=== PATIENT | female | born 1975 | race Two or more races ===

== ENCOUNTER 2020-12-13 07:50 | Emergency (ER) | payer OTHER, SELFPAY ==
--- NOTE | ~2020-12-13 | CT_ITS ---
EXAMINATION: CT HEAD WITHOUT CONTRAST CLINICAL INFORMATION: Right-sided headache COMPARISON: None TECHNIQUE: Contiguous axial imaging was performed from the skull base to vertex without intravenous administration of contrast. This CT examination was performed using dose optimization techniques as appropriate, variously including the following: *Automated exposure control *Adjustment of mA and/or kV according to patient size (this includes techniques or standardized protocols for targeted exams where dose is matched to indication/reason for exam; i.e. extremities or head) *Use of iterative reconstruction technique DLP: 700 mGy-cm FINDINGS: There is no evidence of acute intracranial hemorrhage or territorial infarction. No abnormal mass effect or midline shift is seen. Parker to white matter differentiation is well preserved. No extra-axial fluid collections are identified. The ventricles are normal in size. There is no abnormal attenuation within the brain parenchyma. The osseous structures and soft tissues are normal. The mastoid air cells and visualized portions of the paranasal sinuses are well aerated. CT/CT head/brain wo con IMPRESSION: No acute intracranial process seen.
[2020-12-13 08:31] VITALS: BP 164/75; PULSE 76; RESP 18; TEMP 36.4; O2SAT 100; BMI 32.8
--- NOTE | 2020-12-13 09:07 | ED.EYEPROB ---
HPI - Eye Problem General Chief complaint: Eye Problems Stated complaint: head and eye pain Time Seen by Provider: 12/13/20 09:06 Source: patient Mode of arrival: ambulatory Limitations: no limitations History of Present Illness HPI Narrative: 45 yo female hx of HTN, migraines in the past, comes in with intermittent stabbing pain behind R eye - no vision changes, no fevers, no trauma. chief complaint: other (headache) Onset (ago): day(s) (3) Duration: intermittent Location: right eye Place: home Mechanism: none Severity: moderate If Pain, Quality: stabbing Context: other (hx of headaches in the past but not for years) Associated symptoms: headache Treatments Prior to Arrival: other (took some tylenol no relief) Related Data Home Medications Medication Instructions Recorded Confirmed clonazepam 0.5 mg tablet 0.5 mg PO BID PRN 03/25/20 04/08/20 sertraline 100 mg tablet 0 mg PO 03/25/20 04/08/20 zonisamide 100 mg capsule 200 mg PO BID 03/25/20 04/08/20 Previous Rx's Medication Instructions Recorded hydrochlorothiazide 25 mg tablet 25 mg PO DAILY 90 Days #90 tab 03/25/20 ferrous sulfate 325 mg (65 mg 325 mg PO BID #180 tab 05/12/20 iron) tablet nmwsxcdgwy-ibiilxyhoziud-qbjgsksp 1 tab PO Q6H PRN #20 tab 12/13/20 50 mg-325 mg-40 mg tablet cyclobenzaprine 10 mg tablet 10 mg PO TID PRN #14 tab 12/13/20 Allergies Allergy/AdvReac Type Severity Reaction Status Date / Time Penicillins Allergy Intermediate RASH Verified 04/08/20 17:50 penicillin V Allergy Unknown hives Verified 04/08/20 17:50 Review of Systems Review of Systems: Constitutional : No Fever, No Chills, No Fatigue ENT/Mouth : No sore throat, No Rhinorrhea Eyes: pos Eye Pain, No Swelling, No Redness Cardiovascular : No Chest Pain, No SOB, No Dyspnea on Exertion Respiratory : No Cough, No Sputum Gastrointestinal : No Nausea, No Vomiting, No Diarrhea, No abdominal Pain Genitourinary : No Dysuria, No Urinary Frequency, No Hematuria, Musculoskeletal : No joint pain, No Myalgias, No Joint Swelling Skin : No Skin Lesions, No rash Neuro : No Weakness, No Numbness, No Dizziness, positive Headache Psych : No Anxiety/Panic, No Depression Heme/Lymph: No Bruising, No Bleeding,No Lymphadenopathy Endocrine : No Polyuria, No Polydipsia All other systems reviewed and are negative [facility] Past Medical History Attestation statement: The following information was validated with the patient. Medical History Depression with anxiety Essential hypertension Iron deficiency anemia Surgical History History of carpal tunnel release History of tubal ligation Family History Family History (Updated 03/16/20 @ 10:40 by Evelyn Vargas [facility]) Father Hypertension Mother Hypertension Maternal Grandmother Diabetes Paternal Grandfather Cancer Social History Social History (Updated 12/13/20 @ 09:25 by Samina Mccullough DO) Patient Tobacco Use Status: Never used Tobacco Use of substances other than those prescribed or required for medical reasons: No Advance Directives: No Advance Directives Information Provided: No Physical Exam Vital Signs: Vital Signs: Last Vital Signs Temp 97.6 F 12/13/20 08:31 Pulse 76 12/13/20 08:31 Resp 18 12/13/20 08:31 BP 164/75 H 12/13/20 08:31 Pulse Ox 100 12/13/20 08:31 Body Mass Index 32.8 Appearance: Alert. Oriented X3. No acute distress. Eyes: Pupils equal, round and reactive to light. ENT: Pharynx normal. no temporal artery ttp Neck: Normal inspection. Neck supple. no meningeal signs CVS: Normal heart rate and rhythm. Pulses normal. Respiratory: No respiratory distress. Breath sounds normal. Abdomen: Soft and nontender. Skin: Skin warm and dry. Normal skin color. Normal skin turgor. Extremities: No lower extremity edema. Neuro: Oriented X 3. No motor deficit. No sensory deficit. Course Course Course Narrative: feels much better, pain resolved, CT head negative MDM - Eye Problem MDM Narrative Medical decision making narrative: 45 yo female with hx of HTN, headaches here with R sided stabbing headache no vision changes, normal pupil, eye appears normal, no tender temporal artery - at this time CT head for mass, PO pain medications, could be headache vs trigeminal neuralgia type pain, doubt GCA, given normal eye exam doubt glaucoma, dispo per results and findings. Discharge Plan Discharge Clinical Impression: Acute headache Qualifiers: Headache type: unspecified Intractability: not intractable Qualified Code(s): R51.9 - Headache, unspecified Patient Disposition: Home, Self-Care Instructions: Acute Headache (ED) Additional Instructions: return to ED for any worsening symptoms or concerns Prescriptions: New cyclobenzaprine 10 mg tablet 10 mg PO TID PRN (Reason: muscle spasm) Qty: 14 RF: 0 fwdqcarkjb-vskpqpdpmrvre-hpta 50-325-40 mg tablet 1 tab PO Q6H PRN (Reason: pain) Qty: 20 RF: 0 No Action ferrous sulfate 325 mg (65 mg iron) tablet 325 mg PO BID Qty: 180 RF: 5 sertraline 100 mg tablet 0 mg PO RF: 0 clonazepam 0.5 mg tablet 0.5 mg PO BID PRNRF: 0 zonisamide 100 mg capsule 200 mg PO BID RF: 0 hydrochlorothiazide 25 mg tablet 25 mg PO DAILY 90 Days Qty: 90 RF: 4 Referrals: Lupe Barcenas MD [Primary Care Provider] - 2 days (if not better) Print Language: Belarusian
[2020-12-13] MEDS: Butalb/Acetamin/Caff 50/325/40 TABLET 1 TAB PO (09:22)
[2020-12-13] MEDS: hydroCHLOROthiazide 25 MG TABLET PO (09:23)
[2020-12-13] MEDS: Cyclobenzaprine HCl 10 MG TABLET PO (09:23)
[2020-12-13 10:28] VITALS: BP 132/74; PULSE 63; RESP 16; O2SAT 98
== END 2020-12-13 10:30 | disposition home or self-care (01) ==
PROVIDERS: Emergency Provider Emergency Medicine; PCP Internal Medicine
DX: R51.9 Headache, unspecified (principal); I10 Essential (primary) hypertension; Z79.899 Other long term (current) drug therapy
CPT/HCPCS: 70450; 99284

== ENCOUNTER 2021-02-11 10:56 | Outpatient (REF) | payer OTHER, SELFPAY ==
--- NOTE | ~2021-02-11 | MM_ITS ---
EXAMINATION: MM SCREENING DIGITAL BREAST TOMOSYNTHESIS, BILATERAL CLINICAL INFORMATION: Screening. Asymptomatic. The lifetime risk of breast cancer based on the Tyrer-Cuzick Model is 7%. COMPARISON: Mammography: 01/09/2020, 09/11/2018, 07/31/2017 TECHNIQUE: Digital breast tomosynthesis is performed in both the craniocaudal and mediolateral oblique views along with computer-aided detection (CAD). Synthesized 2D images are generated from the tomosynthesis. FINDINGS: There are scattered areas of fibroglandular density (ACR BI-RADS breast composition Category b). There are no significant masses, abnormal calcifications, or other abnormalities. Parenchymal pattern is similar to prior exams. No developing density. The axilla and skin contours are unremarkable. MM/MM tomosynthesis screening BI IMPRESSION: No mammographic evidence of malignancy. ASSESSMENT: BI-RADS 1: Negative RECOMMENDATION: Routine annual mammography screening. This patient's information was entered into a reminder system with a target due date for their next mammogram.
== END 2021-02-11 10:57 | disposition home or self-care (01) ==
LOC: HO.MAMMO 10:56
PROVIDERS: PCP Internal Medicine; Visit Provider Internal Medicine
DX: Z12.31 Encounter for screening mammogram for malignant neoplasm of breast (principal)
CPT/HCPCS: 77063; 77067

== ENCOUNTER 2021-04-28 00:31 | Emergency (ER) | payer OTHER, SELFPAY ==
[2021-04-28 01:06] VITALS: BP 169/92; PULSE 82; RESP 18; TEMP 37.3; O2SAT 97; BMI 32.8
[2021-04-28 03:39] LABS: COVID-19 Test Positive (Negative); IDNOW Serial# 9DD0AD1C
--- NOTE | 2021-04-28 05:16 | ED_ITS ---
HPI - General Adult General Chief complaint: General Medical Stated complaint: COVID +? SoB, Nausea Time Seen by Provider: 04/28/21 04:20 Source: patient Mode of arrival: ambulatory History of Present Illness HPI narrative: 46-year-old female with history of hypertension presents with not feeling well throughout the day and taking a home COVID test which is positive, but states she is primarily nauseous. She has had the COVID-19 vaccine, Pfizer, but states she has not received a booster because she was vaccinated in time frame. Related Data Home Medications Medication Instructions Recorded Confirmed clonazepam 0.5 mg tablet 0.5 mg PO BID PRN 03/25/20 04/04/21 sertraline 100 mg tablet 0 mg PO 03/25/20 04/04/21 zonisamide 100 mg capsule 200 mg PO BID 03/25/20 04/04/21 Previous Rx's Medication Instructions Recorded hydrochlorothiazide 25 mg tablet 25 mg PO DAILY 90 Days #90 tab 03/25/20 ferrous sulfate 325 mg (65 mg 325 mg PO BID #180 tab 05/12/20 iron) tablet vqxhyctqto-uumuocdovcurm-ebhviktl 1 tab PO Q6H PRN #20 tab 12/13/20 50 mg-325 mg-40 mg tablet cyclobenzaprine 10 mg tablet 10 mg PO TID PRN #14 tab 12/13/20 Allergies Allergy/AdvReac Type Severity Reaction Status Date / Time Penicillins Allergy Intermediate RASH Verified 04/04/21 16:58 Review of Systems Review of Systems: Pertinent positives and negatives as stated in HPI and 10 point review of systems is otherwise negative. [facility] Past Medical History Source: nursing notes reviewed Medical History Depression with anxiety Essential hypertension ANNE (generalized anxiety disorder) Iron deficiency anemia Migraines Mild recurrent major depression Surgical History History of carpal tunnel release History of tubal ligation Family History Family History Father Hypertension Mother Hypertension Maternal Grandmother Diabetes Paternal Grandfather Cancer Social History Social History Housing: Apartment Alcohol intake: never Patient Tobacco Use Status: Never used Tobacco Tobacco use type: Cigarette e-Cigarette/Vaping Use: Never Used Second Hand Smoke Exposure: No Substance Use Type: Marijuana Advance Directives: No Advance Directives Information Provided: No Patient : No service: No Current occupational status: employed Physical Exam Vital Signs: Vital Signs: Last Vital Signs Temp 99.2 F 04/28/21 01:06 Pulse 82 04/28/21 01:06 Resp 18 04/28/21 01:06 BP 169/92 H 04/28/21 01:06 Pulse Ox 97 04/28/21 01:06 BMI result Body Mass Index 32.8 VITAL SIGNS: Reviewed. GENERAL: Well developed, well nourished, in no acute distress. HEAD: Normocephalic/atraumatic EYES: PERRLA, EOMI EARS: Ext canals without abnormality, TMs non-bulging and non-erythematous NOSE: Nares patent bilateral OROPHARYNX: no oral lesions noted, posterior pharynx clear and non-erythematous without noted tonsillar enlargement/erythema/exudates NECK: Supple, no adenopathy LUNGS: Normal breath sounds. No adventitious sounds or accessory muscle use. SpO2<97 CARDIOVASCULAR: Regular rate and rhythm without noted murmurs ABDOMEN: Soft, non-tender, non-distended with bowel sounds. SKIN: Inspection of the skin reveals no rashes NEUROLOGIC: Alert and oriented x 4. S Course Course Course Narrative: 46-year-old female with history and clinical presentation consistent with home test that was COVID positive and on review of all investigations here patient is again noted to be COVID-19 positive. She was informed of all results and instructed to isolate for 14 days and follow up with the primary care provider via telemedicine. Patient is noted to be afebrile, no tachypnea or tachycardia and is otherwise oxygenating well on room air. She is otherwise discharged home in stable condition. Medical Decision Making Lab Data Labs: Lab Results 04/28/21 Range/Units 03:18 COVID-19 (JULIO) Positive A (Negative) COVID-19 Clin Com See Note Discharge Plan Discharge Clinical Impression: Viral syndrome, Lab test positive for detection of COVID-19 virus Patient Disposition: Home, Self-Care Instructions: Viral Syndrome (ED), COVID-19 (Coronavirus Disease 2019) (ED) Additional Instructions: 1. Increase fluid hydration, especially with water. 2. Recommend oiwr-ybu-ekqknlx Tylenol/ibuprofen as needed for body aches, headaches, temperatures greater than 100.4. 3. Recommend following up with your primary care provider via telemedicine appointment for re-evaluation and further outpatient management. You have been diagnosed with COVID-19 infection and must isolate for 14 days and follow all state, Federal guidelines. Return to the ER for worsening symptoms. Prescriptions: No Action ferrous sulfate 325 mg (65 mg iron) tablet 325 mg PO BID Qty: 180 RF: 5 cyclobenzaprine 10 mg tablet 10 mg PO TID PRN (Reason: muscle spasm) Qty: 14 RF: 0 qvuuqwjpxp-qghpyycxpavrs-nzte 50-325-40 mg tablet 1 tab PO Q6H PRN (Reason: pain) Qty: 20 RF: 0 sertraline 100 mg tablet 0 mg PO RF: 0 clonazepam 0.5 mg tablet 0.5 mg PO BID PRNRF: 0 zonisamide 100 mg capsule 200 mg PO BID RF: 0 hydrochlorothiazide 25 mg tablet 25 mg PO DAILY 90 Days Qty: 90 RF: 4 Interventions: ED Discharge Assessment Last Done: 04/28/21 05:04
== END 2021-04-28 05:24 | disposition home or self-care (01) ==
LOC: HO.ED 05:17
PROVIDERS: Emergency Provider Student in an Organized Health Care Education/Training Program
DX: U07.1 COVID-19 (principal); R06.02 Shortness of breath; I10 Essential (primary) hypertension
CPT/HCPCS: 87635; 99282; 99283

== ENCOUNTER 2021-06-18 00:11 | Emergency (ER) | payer OTHER, SELFPAY ==
[2021-06-18 00:18] VITALS: BP 123/66; PULSE 70; RESP 16; TEMP 36.3; O2SAT 100; BMI 32.8
--- NOTE | 2021-06-18 00:49 | ECG_ITS ---
Test Reason : LEFT ARM PAIN Blood Pressure : / mmHG Vent. Rate : 063 BPM Atrial Rate : 063 BPM P-R Int : 180 ms QRS Dur : 070 ms QT Int : 416 ms P-R-T Axes : 049 009 014 degrees QTc Int : 425 ms Normal sinus rhythm Normal ECG When compared with ECG of 06-MAY-2017 17:25, No significant change was found Referred By: Kaur Kramer Electronically Signed By:KENDRICK MYERS
--- NOTE | 2021-06-18 00:56 | ED.EXTPRO ---
HPI - Extremity Problem General Chief complaint: Extremity Injury, Upper Stated complaint: chest pain radiates to shoulder Time Seen by Provider: 06/18/21 00:21 Source: patient Mode of arrival: ambulatory Limitations: no limitations History of Present Illness HPI Narrative: Patient comes to emergency room complaining of left-sided chest pain radiating towards the left arm. Patient states it started yesterday, states that the pain did not allow her to sleep. Patient states that she thinks that she has left is in a position that made her arm and upper back hurt. Patient denies any falls or injuries. Patient denies any shortness of breath, no neck pain. Patient states the pain is worse with any movement Related Data Home Medications Medication Instructions Recorded Confirmed clonazepam 0.5 mg tablet 0.5 mg PO BID PRN 03/25/20 04/04/21 sertraline 100 mg tablet 0 mg PO 03/25/20 04/04/21 zonisamide 100 mg capsule 200 mg PO BID 03/25/20 04/04/21 Previous Rx's Medication Instructions Recorded ogrfmpmhul-uyuavtawhogom-tsmncprs 1 tab PO Q6H PRN #20 tab 12/13/20 50 mg-325 mg-40 mg tablet cyclobenzaprine 10 mg tablet 10 mg PO TID PRN #14 tab 12/13/20 hydrochlorothiazide 25 mg tablet 25 mg PO DAILY 90 Days #90 tab 05/07/21 ferrous sulfate 325 mg (65 mg 325 mg PO BID #180 tab 05/23/21 iron) tablet cyclobenzaprine 10 mg tablet 10 mg PO TID PRN #10 tab 06/18/21 ibuprofen 600 mg tablet 600 mg PO TID PRN #14 tab 06/18/21 Allergies Allergy/AdvReac Type Severity Reaction Status Date / Time Penicillins Allergy Intermediate RASH Verified 04/04/21 16:58 Review of Systems Review of Systems: Constitutional : No Weight loss, No Fever, No Chills, No Night Sweats, No Fatigue, No Malaise ENT/Mouth : No Hearing loss, No Ear Pain, No Nasal Congestion, No Sinus Pain, No Hoarseness, No sore throat, No Rhinorrhea, No Swallowing Difficulty Eyes: No Eye Pain, No Swelling, No Redness, No Foreign Body, No Discharge, No Vision Changes Cardiovascular : Left-sided Chest Pain radiating towards the left arm No SOB, No Dyspnea on Exertion, No Orthopnea, No Edema, No Palpitations Respiratory : No Cough, No Sputum, No Wheezing, No Smoke Exposure, No Dyspnea Gastrointestinal : No Nausea, No Vomiting, No Diarrhea, No Constipation, No abdominal Pain, No Hematochezia, No Melena Genitourinary : no irregular bleeding, No Dysuria, No Urinary Frequency, No Hematuria, No Urinary Incontinence, No Urgency, No Flank Pain, No Urinary Flow Changes, No Hesitancy Musculoskeletal : No joint pain, No Myalgias, No Joint Swelling Skin : No Skin Lesions, No rash Neuro : No Weakness, No Numbness, No Paresthesias, No Loss of Consciousness, No Dizziness, No Headache Psych : No Anxiety/Panic, No Depression, No SI/HI/AH/VH, No Social Issues, Heme/Lymph: No Bruising, No Bleeding,No Lymphadenopathy Endocrine : No Polyuria, No Polydipsia, No Temperature Intolerance [facility] Past Medical History Medical History Depression with anxiety Essential hypertension ANNE (generalized anxiety disorder) Iron deficiency anemia Migraines Mild recurrent major depression Surgical History History of carpal tunnel release History of tubal ligation Family History Family History Father Hypertension Mother Hypertension Maternal Grandmother Diabetes Paternal Grandfather Cancer Social History Social History Housing: Apartment Alcohol intake: never Patient Tobacco Use Status: Never used Tobacco Tobacco use type: Cigarette e-Cigarette/Vaping Use: Never Used Second Hand Smoke Exposure: No Substance Use Type: Marijuana Advance Directives: No Advance Directives Information Provided: Yes Patient : No service: No Current occupational status: employed Physical Exam Vital Signs: Vital Signs: Last Vital Signs Temp 97.3 F 06/18/21 00:18 Pulse 70 06/18/21 00:18 Resp 16 06/18/21 00:18 BP 123/66 06/18/21 00:18 Pulse Ox 100 06/18/21 00:18 BMI result Body Mass Index 32.8 Const: Other: Appearance: Alert. Oriented X3. No acute distress. Eyes: Pupils equal, round and reactive to light. ENT: Pharynx normal. Neck: Normal inspection. Neck supple. No lymph nodes noted. No crepitus CVS: Normal heart rate and rhythm. Pulses normal. Normal S1 and S2, reproducible chest pain to palpation, worse when left arm is extended backwards or abducted Respiratory: No respiratory distress. Breath sounds normal. No Wheezing. No rales Abdomen: Soft and nontender. No rigidity. No distention. good BS x4 Skin: Skin warm and dry. Normal skin color. Normal skin turgor. Extremities: No lower extremity edema. No lower extremity edema. No Lacerations. No Rash Neuro: Oriented X 3. No motor deficit. No sensory deficit. Moving all extermities. No slurred speech. Course Course Course Narrative: I discussed labs with the patient, EKG and troponin within normal limits. Patient's pain likely musculoskeletal. MDM - Extremity (Nontraumatic) Lab Data Result diagrams: 06/18/21 01:39 06/18/21 01:39 Labs: Lab Results 06/18/21 06/18/21 06/18/21 Range/Units 01:39 01:39 01:39 WBC 9.6 (4.8-10.8) X10*3/uL RBC 4.56 (4.20-5.50) X10*6/uL Hgb 10.2 L (12.0-16.0) g/dl Hct 33.5 L (37.0-47.0) % MCV 73.5 L (80.0-98.0) fL MCH 22.4 L (27.0-33.0) pg MCHC 30.4 L (31.0-35.0) g/dl Sodium 135 (135-145) mmol/L Potassium 4.5 (3.3-5.1) mmol/L Chloride 102 (96-108) mmol/L Carbon Dioxide 24 (22-29) mmol/L Anion Gap 14 (12-20) BUN 12 (9-16) mg/dL Creatinine 0.81 (0.5-1.4) mg/dL Estim Creat Clear Calc 89.9 Estimated GFR > 60 Random Glucose 109 (60-115) mg/dL Calcium 9.7 (8.4-10.2) mg/dL Troponin I High Sens < 3.5 (<3.5-17.0) ng/L Discharge Plan Discharge Clinical Impression: Muscle pain Patient Disposition: Home, Self-Care Instructions: Musculoskeletal Pain (ED) Additional Instructions: Please follow-up with your primary care physician tomorrow. If you have any worsening or new symptoms, please return to the emergency room or call 911 Prescriptions: New cyclobenzaprine 10 mg tablet 10 mg PO TID PRN (Reason: muscle spasm) Qty: 10 0RF ibuprofen 600 mg tablet 600 mg PO TID PRN (Reason: pain) Qty: 14 0RF No Action hydrochlorothiazide 25 mg tablet 25 mg PO DAILY 90 Days Qty: 90 4RF ferrous sulfate 325 mg (65 mg iron) tablet 325 mg PO BID Qty: 180 5RF cyclobenzaprine 10 mg tablet 10 mg PO TID PRN (Reason: muscle spasm) Qty: 14 0RF phpzshgrhf-zkfydqdtvygdi-egpw 50-325-40 mg tablet 1 tab PO Q6H PRN (Reason: pain) Qty: 20 0RF sertraline 100 mg tablet 0 mg PO 0RF clonazepam 0.5 mg tablet 0.5 mg PO BID PRN0RF zonisamide 100 mg capsule 200 mg PO BID 0RF
--- NOTE | 2021-06-18 01:40 | PC.NURSE ---
computer hardware technician at bedside for labs and EKG.
[2021-06-18 01:48] LABS: Basophils Percent Auto 0.4 % (0-2); Eosinophils Absolute Auto 0.2 X10*3/uL (0.0-0.4); Eosinophils Percent Auto 1.9 % (0-4); Hematocrit 33.5 % (37.0-47.0); Hemoglobin 10.2 g/dl (12.0-16.0); Imm Gran Abs Auto 0.02 X10*3/uL (0.00-0.03); Imm Gran Pct Auto 0.2 % (0.0-0.4); Lymphocytes Absolute Auto 2.8 X10*3/uL (1.2-4.9); Lymphocytes Percent Auto 29.8 % (20-40); MANUAL DIFF FLAG SCAN; Mean Corpuscular HGB Conc 30.4 g/dl (31.0-35.0); Mean Corpuscular Hemoglobin 22.4 pg (27.0-33.0); Mean Corpuscular Volume 73.5 fL (80.0-98.0); Mean Platelet Volume 9.6 fL (9.4-12.3); Monocytes Absolute Auto 0.6 X10*3/uL (0.1-1.2); Monocytes Percent Auto 6.3 % (2-11); Neutrophils Absolute Auto 5.7 x10*3/uL (2.0-8.3); Neutrophils Percent Auto 61.4 % (45-73); PLT CLUMP 1; Red Blood Count 4.56 X10*6/uL (4.20-5.50); Red Cell Distribution Width 18.3 % (11.0-16.0); SCAN SMEAR FLAG 1; White Blood Count 9.6 X10*3/uL (4.8-10.8)
[2021-06-18 02:03] LABS: Anion Gap 14 (12-20); Blood Urea Nitrogen 12 mg/dL (9-16); Calcium 9.7 mg/dL (8.4-10.2); Carbon Dioxide 24 mmol/L (22-29); Chloride 102 mmol/L (96-108); Creatinine Clr Calc Pharmacy 89.9; Estimated Glomerular Filt Rate > 60; Glucose Random 109 mg/dL (60-115); Potassium 4.5 mmol/L (3.3-5.1); Sodium 135 mmol/L (135-145)
[2021-06-18 02:10] LABS: Troponin-I High Sensitivity < 3.5 ng/L (<3.5-17.0)
[2021-06-18 02:40] LABS: SLIDE REVIEW VERIFIED
== END 2021-06-18 02:26 | disposition home or self-care (01) ==
PROVIDERS: Emergency Provider Emergency Medicine
DX: M79.10 Myalgia, unspecified site (principal); I10 Essential (primary) hypertension
CPT/HCPCS: 36415; 80048; 84484; 85025; 93005; 99283

== ENCOUNTER 2021-07-17 23:56 | Emergency (ER) | payer OTHER, SELFPAY ==
[2021-07-18 00:23] VITALS: BP 140/67; PULSE 69; RESP 16; TEMP 36.6; O2SAT 100; BMI 33.1
--- NOTE | 2021-07-18 00:30 | ECG_ITS ---
Test Reason : chest pain Blood Pressure : / mmHG Vent. Rate : 064 BPM Atrial Rate : 064 BPM P-R Int : 176 ms QRS Dur : 074 ms QT Int : 414 ms P-R-T Axes : 041 001 013 degrees QTc Int : 427 ms Normal sinus rhythm Normal ECG When compared with ECG of 18-JUN-2021 01:08, No significant change was found Referred By: Generic ED Physician Electronically Signed By:KENDRICK MYERS
[2021-07-18 01:50] LABS: Basophils Percent Auto 0.4 % (0-2); Eosinophils Absolute Auto 0.2 X10*3/uL (0.0-0.4); Eosinophils Percent Auto 2.2 % (0-4); Hemoglobin 9.7 g/dl (12.0-16.0); Imm Gran Abs Auto 0.03 X10*3/uL (0.00-0.03); Imm Gran Pct Auto 0.3 % (0.0-0.4); Lymphocytes Absolute Auto 2.7 X10*3/uL (1.2-4.9); Lymphocytes Percent Auto 27.4 % (20-40); MANUAL DIFF FLAG NO; Mean Corpuscular HGB Conc 30.3 g/dl (31.0-35.0); Mean Corpuscular Hemoglobin 22.4 pg (27.0-33.0); Mean Corpuscular Volume 73.7 fL (80.0-98.0); Mean Platelet Volume 9.3 fL (9.4-12.3); Monocytes Absolute Auto 0.8 X10*3/uL (0.1-1.2); Monocytes Percent Auto 8.2 % (2-11); Neutrophils Absolute Auto 5.9 x10*3/uL (2.0-8.3); Neutrophils Percent Auto 61.5 % (45-73); Platelet Count 411 X10*3/uL (160-400); Red Blood Count 4.34 X10*6/uL (4.20-5.50); Red Cell Distribution Width 18.2 % (11.0-16.0); White Blood Count 9.7 X10*3/uL (4.8-10.8)
[2021-07-18 02:08] LABS: Alanine Aminotransferase 12 U/L (0-31); Albumin Level 4.3 g/dL (3.5-5.0); Alkaline Phosphatase 56 U/L (39-117); Anion Gap 13 (12-20); Aspartate Amino Transferase 11 U/L (5-31); Bilirubin Direct < 0.2 mg/dL (0.0-0.5); Bilirubin Total 0.4 mg/dL (0.0-1.0); Blood Urea Nitrogen 14 mg/dL (9-16); Calcium 9.8 mg/dL (8.4-10.2); Carbon Dioxide 25 mmol/L (22-29); Chloride 103 mmol/L (96-108); Creatinine Clr Calc Pharmacy 87.2; Estimated Glomerular Filt Rate > 60; Glucose Random 100 mg/dL (60-115); Lipase 24 U/L (8-78); Potassium 3.8 mmol/L (3.3-5.1); Sodium 137 mmol/L (135-145); Total Protein 7.8 g/dL (6.5-8.0)
[2021-07-18 02:12] LABS: Troponin-I High Sensitivity < 3.5 ng/L (<3.5-17.0)
--- NOTE | 2021-07-18 03:28 | ED.GENADULT ---
HPI - General Adult General Chief complaint: General Medical Stated complaint: left arm tingling sensation/pain Time Seen by Provider: 07/18/21 03:28 Source: patient Mode of arrival: ambulatory Limitations: language barrier ( patient's 1st language is [place], she does speak some Kyrgyz, neurological surgeon was used.) History of Present Illness HPI narrative: 46-year-old female who presents emergency department for evaluation of left arm pain and tingling this. She states that the pain came on gradually at around 22:00. She states that the pain has been intermittent but she has had repeat episodes since coming to the emergency department. She describes the pain as a throbbing sensation with a tingling sensation, the pain starts that her left neck, goes down her shoulder into her hand. She states she does feel like her left wrist is weak. She denies any other weakness. She denies any injury. She does not recall any injury. She denied fever, chills, rhinorrhea, sore throat, cough, shortness of breath, abdominal pain, nausea, vomiting. Onset (ago): hour(s) (2) Location: neck ( Left) and upper extremity ( left) Severity: severe Severity scale (1-10): 8 Quality: other ( throbbing, numbness) Pain Consistency: intermittent Relieving factors: none Exacerbating factors: none Associated symptoms: denies other symptoms Treatments prior to arrival: none Related Data Home Medications Medication Instructions Recorded Confirmed clonazepam 0.5 mg tablet 0.5 mg PO BID PRN 03/25/20 04/04/21 sertraline 100 mg tablet 0 mg PO 03/25/20 04/04/21 zonisamide 100 mg capsule 200 mg PO BID 03/25/20 04/04/21 Previous Rx's Medication Instructions Recorded ichqokoyxr-qxjcnslbyxktf-stgevinf 1 tab PO Q6H PRN #20 tab 12/13/20 50 mg-325 mg-40 mg tablet cyclobenzaprine 10 mg tablet 10 mg PO TID PRN #14 tab 12/13/20 hydrochlorothiazide 25 mg tablet 25 mg PO DAILY 90 Days #90 tab 05/07/21 ferrous sulfate 325 mg (65 mg 325 mg PO BID #180 tab 05/23/21 iron) tablet cyclobenzaprine 10 mg tablet 10 mg PO TID PRN #10 tab 06/18/21 ibuprofen 600 mg tablet 600 mg PO TID PRN #14 tab 06/18/21 cyclobenzaprine 10 mg tablet 10 mg PO TID PRN #15 tab 07/18/21 Allergies Allergy/AdvReac Type Severity Reaction Status Date / Time Penicillins Allergy Intermediate RASH Verified 04/04/21 16:58 Review of Systems Review of Systems: Yes all other systems are reviewed and are negative [facility] Past Medical History Medical History Depression with anxiety Essential hypertension ANNE (generalized anxiety disorder) Iron deficiency anemia Migraines Mild recurrent major depression Surgical History History of carpal tunnel release History of tubal ligation Family History Family History Father Hypertension Mother Hypertension Maternal Grandmother Diabetes Paternal Grandfather Cancer Social History Social History Housing: Apartment Alcohol intake: never Patient Tobacco Use Status: Never used Tobacco Tobacco use type: Cigarette e-Cigarette/Vaping Use: Never Used Second Hand Smoke Exposure: No Substance Use Type: Marijuana Advance Directives: No Advance Directives Information Provided: Yes service: No Current occupational status: employed Physical Exam ED Vital Signs: Vital Signs - 24 hr 07/18/21 00:23 Temperature 97.9 F Pulse Rate 69 Respiratory Rate 16 Blood Pressure 140/67 H Pulse Oximetry 100 BMI result Body Mass Index 33.1 Const General: cooperative and no acute distress Orientation/consciousness: oriented to person and oriented to place Limitations: no limitations HENMT Head: Yes normal to inspection, Yes normocephalic and Yes atraumatic Ears: external ears normal General nose exam: Normal external nose present Face and sinus: Yes normal facial exam Mouth: Normal oral and palatal mucosa present Throat: Yes posterior oropharynx normal Eyes General: appearance normal, both eyes and all related structures Pupils: Equal, round and reactive pupils present Neck Other: tender left trapezius muscle with spasm Neck: Yes normal visual inspection, Yes no lymphadenopathy, Yes trachea midline and Yes supple Chest Chest palpation & inspection: normal inspection of the chest and normal palpation of entire chest wall Resp Effort & Inspection: normal respiratory effort and able to speak in complete sentences Auscultation: clear to auscultation bilaterally Cardio Rate: regular rate Rhythm: regular rhythm Heart sounds: S1 normal heart sound present, S2 normal heart sound present and no murmurs GI Inspection: Yes normal to inspection Palpation (GI): Soft to palpation, nontender and no guarding Auscultation: normal bowel sounds General: Yes no CVA tenderness Back/Spine/Pelvis Back: no CVA tenderness Skin General skin exam: no rashes or lesions noted Neuro General: oriented to person and oriented to place Cranial nerves: Yes CN's II-XII intact bilaterally and Yes Equal, round and reactive pupils present Cognition (Neuro): normal cognition Motor exam (neuro): 5/5 motor strength present throughout Extrem Other: the upper extremities appear to be normal in size, she has good peripheral pulses and normal light touch sensation, she has normal strength that is bilaterally symmetric, there is no tenderness with palpation of the muscles of her extremities. Psych Appearance: grossly normal Speech and movement: Normal speech and movement present Affect: normal affect Attitude: cooperative Thought process: Normal thought process present Thought content: Normal thought content present Course Course Course Narrative: 46-year-old female who presents emergency department for evaluation of left-sided neck pain and left arm pain with a tingly sensation. The pain came on gradually at around 10:00. Patient had no other concerning symptoms vital signs did reveal slight elevation in her blood pressure of 140/67 otherwise was un remarkable. Patient's examination did reveal left-sided trapezius muscle tenderness otherwise was unremarkable. My impression is that the patient's pain is consistent with musculoskeletal pain with radiculopathy to the left arm. Patient was treated with Toradol 60 mg IM with some improvement of her pain. She was discharged home and advised to take Tylenol and ibuprofen for pain. She is also prescribe cyclobenzaprine. She was given printed and verbal instructions. Medical Decision Making Lab Data Result diagrams: 07/18/21 01:44 07/18/21 01:44 Labs: Lab Results 07/18/21 07/18/21 07/18/21 Range/Units 01:44 01:44 01:44 WBC 9.7 (4.8-10.8) X10*3/uL RBC 4.34 (4.20-5.50) X10*6/uL Hgb 9.7 L (12.0-16.0) g/dl Hct 32.0 L (37.0-47.0) % MCV 73.7 L (80.0-98.0) fL MCH 22.4 L (27.0-33.0) pg MCHC 30.3 L (31.0-35.0) g/dl RDW 18.2 H (11.0-16.0) % Plt Count 411 H (160-400) X10*3/uL MPV 9.3 L (9.4-12.3) fL Immature Gran % (Auto) 0.3 (0.0-0.4) % Neut % (Auto) 61.5 (45-73) % Lymph % (Auto) 27.4 (20-40) % Overton % (Auto) 8.2 (2-11) % Eos % (Auto) 2.2 (0-4) % Baso % (Auto) 0.4 (0-2) % Lymph # (Auto) 2.7 (1.2-4.9) X10*3/uL Overton # (Auto) 0.8 (0.1-1.2) X10*3/uL Eos # (Auto) 0.2 (0.0-0.4) X10*3/uL Baso # (Auto) 0.0 (0.0-0.2) X10*3/uL Abs Immat Gran (auto) 0.03 (0.00-0.03) X10*3/uL Absolute Neuts (auto) 5.9 (2.0-8.3) x10*3/uL Absolute Nucleated RBC 0.000 (0.0-0.012) X10*3/uL Nucleated RBC % (auto) 0.0 (0.0-0.2) /100WBC Sodium 137 (135-145) mmol/L Potassium 3.8 (3.3-5.1) mmol/L Chloride 103 (96-108) mmol/L Carbon Dioxide 25 (22-29) mmol/L Anion Gap 13 (12-20) BUN 14 (9-16) mg/dL Creatinine 0.84 (0.5-1.4) mg/dL Estim Creat Clear Calc 87.2 Estimated GFR > 60 Random Glucose 100 (60-115) mg/dL Calcium 9.8 (8.4-10.2) mg/dL Total Bilirubin 0.4 (0.0-1.0) mg/dL Direct Bilirubin < 0.2 (0.0-0.5) mg/dL AST 11 (5-31) U/L ALT 12 (0-31) U/L Alkaline Phosphatase 56 (39-117) U/L Troponin I High Sens < 3.5 (<3.5-17.0) ng/L Total Protein 7.8 (6.5-8.0) g/dL Albumin 4.3 (3.5-5.0) g/dL Lipase 24 (8-78) U/L Discharge Plan Discharge Clinical Impression: Cervical radiculopathy, Neck pain on left side Patient Disposition: Home, Self-Care Instructions: Cervical Radiculopathy (ED) Additional Instructions: Neck Pain Discharge Instructions: Take Motrin (ibuprofen) 200 mg pills, 3 pills every 6 hours as needed for pain. Take Tylenol (acetaminophen) 500 mg pills, 2 pills every 6 hours as needed for pain. Take Flexeril (cyclobenzaprine) 10 mg pills, 1 pill every 8 hours as needed for pain or muscle spasm. This is a prescription medication. This medication will make you sleepy, therefore do not drive or work while taking this medication. Apply ice for 15 minutes to the area that hurts on your neck. Do this 4-6 times a day to help reduce the pain in your neck. Continue with normal activities as tolerated since staying in bed and not moving around will make your pain worse. You can also try over the counter lidocaine patches as directed on the box to help with the pain. Please return to the Emergency Department or see your doctor immediately if your symptoms get worse or if you develop any new symptoms that are concerning you. Follow up with your doctor in 2 day. Please read the other printed discharge instructions on neck pain. Prescriptions: New cyclobenzaprine 10 mg tablet 10 mg PO TID PRN (Reason: pain, muscle spasm) Qty: 15 0RF No Action hydrochlorothiazide 25 mg tablet 25 mg PO DAILY 90 Days Qty: 90 4RF ferrous sulfate 325 mg (65 mg iron) tablet 325 mg PO BID Qty: 180 5RF cyclobenzaprine 10 mg tablet 10 mg PO TID PRN (Reason: muscle spasm) Qty: 14 0RF gjhlhpzzxv-pjsbfniauowyt-bcqx 50-325-40 mg tablet 1 tab PO Q6H PRN (Reason: pain) Qty: 20 0RF cyclobenzaprine 10 mg tablet 10 mg PO TID PRN (Reason: muscle spasm) Qty: 10 0RF ibuprofen 600 mg tablet 600 mg PO TID PRN (Reason: pain) Qty: 14 0RF sertraline 100 mg tablet 0 mg PO 0RF clonazepam 0.5 mg tablet 0.5 mg PO BID PRN0RF zonisamide 100 mg capsule 200 mg PO BID 0RF
[2021-07-18 04:00] VITALS: BP 155/81; PULSE 73; RESP 14; O2SAT 100
[2021-07-18] MEDS: Ketorolac Tromethamine 60 MG/2 ML VIAL IM (04:06)
== END 2021-07-18 04:13 | disposition home or self-care (01) ==
PROVIDERS: Emergency Provider Emergency Medicine Emergency Medical Services
DX: R20.2 Paresthesia of skin (principal); M54.2 Cervicalgia; M79.602 Pain in left arm; Z79.899 Other long term (current) drug therapy; Z87.891 Personal history of nicotine dependence
CPT/HCPCS: 36415; 80048; 80076; 83690; 84484; 85025; 93005; 96372; 99284; J1885

== ENCOUNTER 2021-11-14 14:09 | Emergency (ER) | payer OTHER, SELFPAY ==
[2021-11-14 14:19] VITALS: BP 141/85; PULSE 98; RESP 18; TEMP 37; O2SAT 100; BMI 31.8
--- NOTE | 2021-11-14 17:13 | ED.DENTAL ---
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 Patient reports she was vigorously performing oral sex and felt pain under her tongue after finishing. Related Data Home Medications Medication Instructions Recorded Confirmed clonazepam 0.5 mg tablet 0.5 mg PO BID PRN 03/25/20 04/04/21 sertraline 100 mg tablet 0 mg PO 03/25/20 04/04/21 zonisamide 100 mg capsule 200 mg PO BID 03/25/20 04/04/21 Previous Rx's Medication Instructions Recorded qlxfwzsqdx-zrycgpjyszple-fnoputzm 1 tab PO Q6H PRN pain #20 tabs 12/13/20 50 mg-325 mg-40 mg tablet cyclobenzaprine 10 mg tablet 10 mg PO TID PRN muscle spasm #14 12/13/20 tabs hydrochlorothiazide 25 mg tablet 25 mg PO DAILY 90 days #90 tabs 05/07/21 ferrous sulfate 325 mg (65 mg 325 mg PO BID #180 tabs 05/23/21 iron) tablet cyclobenzaprine 10 mg tablet 10 mg PO TID PRN muscle spasm #10 06/18/21 tabs ibuprofen 600 mg tablet 600 mg PO TID PRN pain #14 tabs 06/18/21 cyclobenzaprine 10 mg tablet 10 mg PO TID PRN pain, muscle 07/18/21 spasm #15 tabs Allergies Allergy/AdvReac Type Severity Reaction Status Date / Time Penicillins Allergy Intermediate RASH Verified 04/04/21 16:58 Review of Systems Review of Systems: Yes all other systems are reviewed and are negative Constitutional: Constitutional: Reports no additional constitutional complaints, Denies body ache(s), Denies chills, Denies fever(s), Denies headache(s) and Denies weakness Eyes: Eyes: Reports no additional eye complaints and Denies change in vision ENT: Reports system reviewed and no additional complaints, except as documented, Denies dizziness, Denies headache(s), Denies nasal congestion, Denies nasal discharge and Denies neck pain Cardiovascular: Cardiovascular: Reports no additional cardiovascular complaints, Denies chest pain, Denies leg edema and Denies dyspnea Respiratory: Respiratory: Reports no additional respiratory complaints, Denies cough and Denies dyspnea Gastrointestinal: Gastrointestinal: Reports no additional gastrointestinal complaints, Denies abdominal pain, Denies diarrhea, Denies nausea and Denies vomiting Genitourinary: Genitourinary: Reports no additional female genitourinary complaints and Denies urinary incontinence Musculoskeletal: Musculoskeletal: Reports no additional musculoskeletal complaints, Denies back pain, Denies arthralgias, Denies joint swelling, Denies neck pain, Denies numbness and Denies tingling Integumentary/Breasts: Skin/Breast: Reports system reviewed and no additional complaints, except as docu and Denies rash Neurologic: Reports system reviewed and no additional complaints, except as documented, Denies Abnormal speech present, Denies dizziness, Denies headache(s), Denies numbness, Denies tingling and Denies weakness PMFSH Past Medical History Attestation statement: The following information was validated with the patient. Source: old records reviewed and nursing notes reviewed Medical History Depression with anxiety Essential hypertension ANNE (generalized anxiety disorder) Iron deficiency anemia Migraines Mild recurrent major depression Surgical History History of carpal tunnel release History of tubal ligation Family History Family History Father Hypertension Mother Hypertension Maternal Grandmother Diabetes Paternal Grandfather Cancer Social History Social History Housing: Apartment Alcohol intake: never Patient Tobacco Use Status: Never used Tobacco Tobacco use type: Cigarette e-Cigarette/Vaping Use: Never Used Second Hand Smoke Exposure: No Substance Use Type: Marijuana Advance Directives: No Advance Directives Information Provided: No service: No Current occupational status: employed Physical Exam Vital Signs: Vital Signs: Last Vital Signs Temp 98.6 F 11/14/21 14:19 Pulse 98 11/14/21 14:19 Resp 18 11/14/21 14:19 BP 141/85 H 11/14/21 14:19 Pulse Ox 100 11/14/21 14:19 O2 Del Method 11/14/21 14:19 BMI result Body Mass Index 31.8 Const: General: cooperative, healthy appearing, comfortable and no acute distress Orientation/consciousness: patient oriented x3 Limitations: no limitations HEENT: Other: the frenulum under the tongue has some ecchymosis, swelling and a small tear Head: Yes normal to inspection Ears: hearing grossly normal bilaterally General nose exam: Normal external nose present Face and sinus: Yes normal facial exam Mouth: Normal oral and palatal mucosa present Throat: Yes posterior oropharynx normal Eyes: General: appearance normal, both eyes and all related structures Pupils: Equal, round and reactive pupils present Neck: Neck: Yes normal visual inspection Chest: Chest palpation & inspection: normal inspection of the chest Resp: Effort & Inspection: normal respiratory effort Auscultation: clear to auscultation bilaterally Cardio: Rate: regular rate Rhythm: regular rhythm Peripheral pulses: Peripheral pulses 2+ throughout GI: Inspection: Yes normal to inspection Palpation (GI): Soft to palpation and nontender Auscultation: normal bowel sounds Back/Spine/Pelvis: Thoracic/Lumbar Spine: thoracic and lumbar spine normal to inspection Skin: General skin exam: no rashes or lesions noted Neuro: General: patient oriented x3, no focal motor deficits and normal sensation to monofilament Cranial nerves: Yes Equal, round and reactive pupils present Cognition (Neuro): normal cognition Speech: No Abnormal speech present Gait exam (Neuro): Normal gait present Motor exam (neuro): 5/5 motor strength present throughout Extrem: General: Yes normal to inspection Course Course Course Narrative: Exam is consistent with a small frenulum tear with local ecchymosis and swelling. Patient recommended to do saltwater gargles, soft foods at home and Motrin or Tylenol for pain. Reviewed worrisome signs and symptoms and when to return to the emergency department. Comfortable discharge home. MDM - Dental/Oral MDM Narrative Medical decision making narrative: 46-year-old female here with swelling, bruising and pain under the tongue after having oral intercourse. Medical Records Attestation: I reviewed the patient's medical records. Lab Data Attestation: I reviewed the patient's lab results. Discharge Plan Discharge Clinical Impression: Trauma of floor of mouth Patient Disposition: Home, Self-Care Instructions: Contusion in Adults (ED) Additional Instructions: Saltwater gargles soft food Motrin or Tylenol for pain Prescriptions: No Action hydrochlorothiazide 25 mg tablet 25 mg PO DAILY 90 Days Qty: 90 4RF ferrous sulfate 325 mg (65 mg iron) tablet 325 mg PO BID Qty: 180 5RF cyclobenzaprine 10 mg tablet 10 mg PO TID PRN (Reason: muscle spasm) Qty: 14 0RF mumbcixkrl-ffxvgbhvvkpet-lsxu 50-325-40 mg tablet 1 tab PO Q6H PRN (Reason: pain) Qty: 20 0RF cyclobenzaprine 10 mg tablet 10 mg PO TID PRN (Reason: muscle spasm) Qty: 10 0RF ibuprofen 600 mg tablet 600 mg PO TID PRN (Reason: pain) Qty: 14 0RF cyclobenzaprine 10 mg tablet 10 mg PO TID PRN (Reason: pain, muscle spasm) Qty: 15 0RF sertraline 100 mg tablet 0 mg PO clonazepam 0.5 mg tablet 0.5 mg PO BID PRN zonisamide 100 mg capsule 200 mg PO BID Referrals: Lupe Barcenas MD [Primary Care Provider] - 1 week Interventions: ED Discharge Assessment Last Done: 11/14/21 17:25 Discharge Date/Time: 11/14/21 17:27 Print Language: [place] Citizen
== END 2021-11-14 17:27 | disposition home or self-care (01) ==
LOC: HO.ED 17:27
PROVIDERS: Emergency Provider Emergency Medicine; PCP Internal Medicine
DX: J02.9 Acute pharyngitis, unspecified (principal); F41.1 Generalized anxiety disorder; F43.0 Acute stress reaction; Z79.899 Other long term (current) drug therapy
CPT/HCPCS: 99282; 99283

== ENCOUNTER 2022-12-11 13:28 | Emergency (ER) | payer OTHER, SELFPAY ==
[2022-12-11 15:01] VITALS: BP 161/92; PULSE 74; RESP 18; TEMP 36.3; O2SAT 100; BMI 30.9
--- NOTE | 2022-12-11 15:01 | ED_ITS ---
HPI - Headache General Chief Complaint: Extremity Injury, Upper Stated Complaint: headache / L arm pain Time Seen by Provider: 12/11/22 15:36 Source: patient, RN notes reviewed and old records reviewed Mode of arrival: ambulatory History of Present Illness HPI Narrative: 47-year-old female with a past medical history of migraines, anxiety, depression, iron deficiency anemia, HTN, presenting to the ED complaining of intermittent left neck/shoulder pain radiating down LUE x2 days. Also reports mild headache, admits to feeling extremely anxious at present. Denies injury/trauma or fall, chest pain/shortness of breath, numbness, tingling, weakness, recent manipulation MD elicited complaint: headache Related Data Home Medications Medication Instructions Recorded Confirmed clonazepam 0.5 mg tablet 0.5 mg PO BID PRN 03/25/20 05/30/22 sertraline 100 mg tablet 0 mg PO 03/25/20 05/30/22 Previous Rx's Medication Instructions Recorded ferrous sulfate 325 mg (65 mg 325 mg PO BID #180 tabs 06/01/22 iron) tablet hydrochlorothiazide 25 mg tablet 25 mg PO DAILY 90 days #90 tabs 06/01/22 acetaminophen 500 mg tablet 500 mg PO Q6H PRN fever or pain 12/11/22 (Tylenol Extra Strength) #14 tabs cyclobenzaprine 5 mg tablet 5 mg PO Q8H PRN pain (scale score 12/11/22 7-10) 5 days #14 tabs lidocaine 5 % topical patch 1 patch topical DAILY PRN pain #30 12/11/22 (Lidoderm) ea naproxen 500 mg tablet 500 mg PO BID PRN pain 10 days #20 12/11/22 tabs Allergies Allergy/AdvReac Type Severity Reaction Status Date / Time Penicillins Allergy Intermediate RASH Verified 12/11/22 15:01 Review of Systems Review of Systems: Constitutional: No Fever, No Chills ENT/Mouth: No Ear Pain, No Nasal Congestion, No sore throat, No Rhinorrhea, No Swallowing Difficulty Cardiovascular: No Chest Pain, No SOB Respiratory: No Cough, No Sputum, No Wheezing Gastrointestinal: No Nausea, No Vomiting, No Diarrhea, No Constipation, No Abdominal pain Genitourinary: No Dysuria,No Hematuria, No Urinary Incontinence/retention, No Flank Pain Musculoskeletal: + joint pain, + Myalgias, No Joint Swelling Skin: No Skin Lesions, No rash Neuro: No Weakness, No Numbness, No Paresthesias, +BROWN Psych: +Anxiety Yes all other systems are reviewed and are negative Constitutional: Constitutional: Reports as per [facility] Past Medical History Attestation statement: The following information was validated with the patient. Source: old records reviewed Medical History Depression with anxiety Essential hypertension ANNE (generalized anxiety disorder) Iron deficiency anemia Migraines Mild recurrent major depression Surgical History History of carpal tunnel release History of tubal ligation Family History Family History Father Hypertension Mother Hypertension Maternal Grandmother Diabetes Paternal Grandfather Cancer Social History Social History Housing: Apartment Alcohol intake: current Alcohol intake frequency: holidays/special occasions only Alcohol type: beer and wine Patient Tobacco Use Status: Never used Tobacco e-Cigarette/Vaping Use: Never Used Second Hand Smoke Exposure: No Substance Use Type: Marijuana Advance Directives: No Advance Directives Information Provided: Yes service: No Current occupational status: employed Cognitive needs: No Hearing needs: No Vision needs: Yes Physical Exam Vital Signs: Vital Signs: Last Vital Signs Temp 97.9 F 12/11/22 16:46 Pulse 74 12/11/22 16:46 Resp 18 12/11/22 16:46 BP 123/96 H 12/11/22 16:46 Pulse Ox 99 12/11/22 16:46 O2 Del Method Room Air 12/11/22 16:46 BMI result Body Mass Index 30.9 Const: Other: Patient very anxious and tearful General: cooperative, healthy appearing, no acute distress and anxious Orientation/consciousness: patient oriented x3 Limitations: no limitations HEENT: Head: Yes normal to inspection, Yes atraumatic, No Briscoe's sign and No raccoon eyes Ears: hearing grossly normal bilaterally General nose exam: Normal external nose present Face and sinus: Yes normal facial exam Throat: Yes posterior oropharynx normal, Yes tonsils normal and Yes uvula midline Eyes: General: appearance normal, both eyes and all related structures Pupils: Equal, round and reactive pupils present EOM: EOMs intact bilaterally Neck: Neck: Yes normal visual inspection, Yes no meningeal signs, Yes supple, No anterior neck swelling and No torticollis Chest: Chest palpation & inspection: normal inspection of the chest Resp: Effort & Inspection: normal respiratory effort and no respiratory distress Cardio: Rate: regular rate Heart sounds: S1 normal heart sound present and S2 normal heart sound present Peripheral pulses: Peripheral pulses 2+ throughout GI: Inspection: Yes normal to inspection Back/Spine/Pelvis: Other: No midline cervical/thoracic/lumbar spinous tenderness/step-off or deformity. + left-sided paraspinal/trapezius muscle reproducible tenderness to palpation and palpable muscle spasming. Shoulder nontender with full range of motion intact. Neurovascular intact distally. No erythema/ecchymosis Skin: Rashes: no rashes Wounds: no wounds Neuro: General: patient oriented x3, gait normal, tone normal, moves all extremities, no meningeal signs, no focal motor deficits and CN's II-XI intact bilaterally Cranial nerves: Yes CN's II-XII intact bilaterally and Yes Equal, round and reactive pupils present Gait exam (Neuro): Normal gait present Extrem: General: Yes normal to inspection Course Course Course Narrative: This is an RME: Additional HPI, ROS, PE not included below will be deferred to primary provider. This is a 51-injo-[age]-female, hx of depression, anxiety, hypertension, and migraines, presenting to the emergency department for evaluation of left shoulder/arm pain x 2 days. Reports pain is intermittent. Patient no chest pain. Left arm is nontender, range of motion is full. Neurologically intact. Headache is typical of her migraines. She is neurologically intact. Plan: Labs, EKG -chronic anemia. Mild elevation in AST/ALT -troponin negative Results discussed with patient including worrisome signs and symptoms and strict return precautions, and when to return to the emergency department. They verbalized understanding and feel safe for discharge at this time. Medications Administered Discontinued Medications Generic Name Dose Route Start Last Admin Trade Name Freq PRN Reason Stop Dose Admin Lorazepam 1 mg 12/11/22 16:19 12/11/22 16:43 Lorazepam 1 Mg Tablet PO 12/11/22 16:20 1 mg ONCE ONE Administration Medical Decision Making Medical Decision Making MDM Narrative: 47-year-old female with a past medical history of migraines, anxiety, depression, iron deficiency anemia, HTN, presenting to the ED complaining of intermittent left neck/shoulder pain radiating down LUE x2 days. On exam vital signs stable, NAD, nontoxic appearing, physical exam as noted above with reproducible left cervical/trapezius muscle tenderness to palpation. Full range of motion to upper extremity intact. Lungs CTA. No focal deficits. Concern for MSK pain/strain and muscle spasming. Lower suspicion for cervical dissection, fracture, cauda equina/cord compression, SAH. Lower suspicion for atypical ACS Plan: EKG, labs ordered in triage Please refer to course for remaining clinical decision making, interpretation of labs/imaging results, and discussions with consultants and/or family members. Differential Diagnosis Differential Diagnoses: The differential diagnosis associated with the presentation includes As above Admission/Observation Consideration of admission/observation: Escalation of care including admission/observation considered Lab Data MDM Lab Attestation statement: I reviewed the patient's lab results. 12/11/22 15:18 12/11/22 15:18 Labs: Lab Results 12/11/22 12/11/22 12/11/22 Range/Units 15:18 15:18 15:18 WBC 9.2 (4.8-10.8) X10*3/uL RBC 4.28 (4.20-5.50) X10*6/uL Hgb 9.8 L (12.0-16.0) g/dl Hct 32.1 L (37.0-47.0) % MCV 75.0 L (80.0-98.0) fL MCH 22.9 L (27.0-33.0) pg MCHC 30.5 L (31.0-35.0) g/dl RDW 18.0 H (11.0-16.0) % Plt Count 473 H (160-400) X10*3/uL MPV 9.0 L (9.4-12.3) fL Immature Gran % (Auto) 0.2 (0.0-0.4) % Neut % (Auto) 62.5 (45-73) % Lymph % (Auto) 29.2 (20-40) % Caroline % (Auto) 6.7 (2-11) % Eos % (Auto) 0.9 (0-4) % Baso % (Auto) 0.5 (0-2) % Lymph # (Auto) 2.7 (1.2-4.9) X10*3/uL Caroline # (Auto) 0.6 (0.1-1.2) X10*3/uL Eos # (Auto) 0.1 (0.0-0.4) X10*3/uL Baso # (Auto) 0.1 (0.0-0.2) X10*3/uL Abs Immat Gran (auto) 0.02 (0.00-0.03) X10*3/uL Absolute Neuts (auto) 5.7 (2.0-8.3) x10*3/uL Absolute Nucleated RBC 0.000 (0.0-0.012) X10*3/uL Nucleated RBC % (auto) 0.0 (0.0-0.2) /100WBC Sodium 136 (135-145) mmol/L Potassium 3.6 (3.3-5.1) mmol/L Chloride 102 (96-108) mmol/L Carbon Dioxide 25 (22-29) mmol/L Anion Gap 13 (12-20) BUN 12 (9-16) mg/dL Creatinine 0.77 (0.5-1.4) mg/dL Estim Creat Clear Calc 90.9 Estimated GFR > 60 Random Glucose 93 (60-115) mg/dL Calcium 9.6 (8.4-10.2) mg/dL Total Bilirubin 0.3 (0.0-1.0) mg/dL Direct Bilirubin 0.2 (0.0-0.5) mg/dL AST 39 H (5-31) U/L ALT 54 H (0-31) U/L Alkaline Phosphatase 61 (39-117) U/L Troponin I High Sens < 2.7 (<3.5-17.0) ng/L Total Protein 7.8 (6.5-8.0) g/dL Albumin 4.2 (3.5-5.0) g/dL Independent Interpretation I performed an independent interpretation of an: EKG (EKG normal sinus rhythm at a rate of 73. ND interval 162. Qtc 467. No STEMI ) Radiology Impression Discussion of test interpretation with radiology: I have reviewed the radiologist's reading. External Record Review External record reviewed: Inpatient record, Office record, Outpatient record, Prior outpatient labs, Prior outpatient radiology, Primary care record and Outside ED record Tests considered The following testing was considered but not selected: As above Discharge Plan Discharge Clinical Impression: Trapezius muscle spasm Patient Disposition: Home, Self-Care Instructions: Muscle Spasm (ED) Additional Instructions: Your blood work is reassuring Your pain is likely musculoskeletal Flexeril is a muscle relaxer, take at night as it makes you drowsy, do not drive, drink alcohol, or operate machinery while taking it Naproxen as an anti-inflammatory / pain medication, take with food Lidoderm patches are numbing patches, apply to painful area In addition take Tylenol at home If symptoms persist or worsen, pain becomes unbearable, you developed urinary retention or incontinence, or weakness return to the ED Mccrary an?lisis de norah es tranquilizador. Es probable que mccrary dolor sea musculoesquel?alexsander Flexeril es un relajante muscular, t?eugenia por la noche ya que te adormece, no conduzcas, bebas alcohol ni operes maquinaria mientras lo ronaldo. Naproxeno jensen medicamento antiinflamatorio/analg?sico, t?mendez con alimentos Los parches de Lidoderm son parches anest?sicos, se aplican en el ?beverly dolorida Adem?s viji Tylenol en casa Si los s?ntomas persisten o empeoran, el dolor se vuelve insoportable, desarroll? retenci?n urinaria o incontinencia, o debilidad, regrese al servicio de urgencias. Prescriptions: New acetaminophen [Tylenol Extra Strength] 500 mg tablet 500 mg PO Q6H PRN (Reason: fever or pain) Qty: 14 0RF lidocaine [Lidoderm] 5 % adhesive patch,medicated 1 patch topical DAILY MDD remove after 12 hours PRN (Reason: pain) Qty: 30 0RF Rx Instructions: leave on most painful area for up to 12 hrs cyclobenzaprine 5 mg tablet 5 mg PO Q8H PRN (Reason: pain (scale score 7-10)) 5 Days Qty: 14 0RF naproxen 500 mg tablet 500 mg PO BID PRN (Reason: pain) 10 Days Qty: 20 0RF No Action hydrochlorothiazide 25 mg tablet 25 mg PO DAILY 90 Days Qty: 90 4RF ferrous sulfate 325 mg (65 mg iron) tablet 325 mg PO BID Qty: 180 5RF sertraline 100 mg tablet 0 mg PO clonazepam 0.5 mg tablet 0.5 mg PO BID PRN Referrals: Physician,Unknown J [Primary Care Provider] - 1 week Interventions: ED Discharge Assessment Last Done: 12/11/22 17:00 Discharge Date/Time: 12/11/22 17:00 Print Language: Iranian
--- NOTE | 2022-12-11 15:08 | ECG_ITS ---
Test Reason : l shoulder pain Blood Pressure : / mmHG Vent. Rate : 073 BPM Atrial Rate : 073 BPM P-R Int : 162 ms QRS Dur : 070 ms QT Int : 414 ms P-R-T Axes : 043 002 024 degrees QTc Int : 456 ms Normal sinus rhythm Normal ECG When compared with ECG of 18-JUL-2021 00:41, No significant change was found Referred By: Arielle Patel Electronically Signed By:RENEE CORONA
[2022-12-11 15:22] LABS: MANUAL DIFF FLAG NO
[2022-12-11 15:23] LABS: Basophils Absolute Auto 0.1 X10*3/uL (0.0-0.2); Basophils Percent Auto 0.5 % (0-2); Eosinophils Absolute Auto 0.1 X10*3/uL (0.0-0.4); Eosinophils Percent Auto 0.9 % (0-4); Hematocrit 32.1 % (37.0-47.0); Hemoglobin 9.8 g/dl (12.0-16.0); Imm Gran Abs Auto 0.02 X10*3/uL (0.00-0.03); Imm Gran Pct Auto 0.2 % (0.0-0.4); Lymphocytes Absolute Auto 2.7 X10*3/uL (1.2-4.9); Lymphocytes Percent Auto 29.2 % (20-40); Mean Corpuscular HGB Conc 30.5 g/dl (31.0-35.0); Mean Corpuscular Hemoglobin 22.9 pg (27.0-33.0); Monocytes Absolute Auto 0.6 X10*3/uL (0.1-1.2); Monocytes Percent Auto 6.7 % (2-11); Neutrophils Absolute Auto 5.7 x10*3/uL (2.0-8.3); Neutrophils Percent Auto 62.5 % (45-73); Platelet Count 473 X10*3/uL (160-400); Red Blood Count 4.28 X10*6/uL (4.20-5.50); White Blood Count 9.2 X10*3/uL (4.8-10.8)
[2022-12-11 16:16] LABS: Alanine Aminotransferase 54 U/L (0-31); Albumin Level 4.2 g/dL (3.5-5.0); Alkaline Phosphatase 61 U/L (39-117); Anion Gap 13 (12-20); Aspartate Amino Transferase 39 U/L (5-31); Bilirubin Direct 0.2 mg/dL (0.0-0.5); Bilirubin Total 0.3 mg/dL (0.0-1.0); Blood Urea Nitrogen 12 mg/dL (9-16); Calcium 9.6 mg/dL (8.4-10.2); Carbon Dioxide 25 mmol/L (22-29); Chloride 102 mmol/L (96-108); Creatinine Clr Calc Pharmacy 90.9; Estimated Glomerular Filt Rate > 60; Glucose Random 93 mg/dL (60-115); Potassium 3.6 mmol/L (3.3-5.1); Sodium 136 mmol/L (135-145); Total Protein 7.8 g/dL (6.5-8.0)
[2022-12-11 16:43] LABS: Troponin-I High Sensitivity < 2.7 ng/L (<3.5-17.0)
[2022-12-11] MEDS: LORazepam 1 MG TABLET PO (16:43)
[2022-12-11 16:46] VITALS: BP 123/96; PULSE 74; RESP 18; TEMP 36.6; O2SAT 99
== END 2022-12-11 17:00 | disposition home or self-care (01) ==
PROVIDERS: Physician Assistant Medical; Emergency Provider Internal Medicine
DX: R07.89 Other chest pain (principal); R06.02 Shortness of breath; R05.9 Cough, unspecified; Z79.899 Other long term (current) drug therapy
CPT/HCPCS: 36415; 80048; 80076; 84484; 85025; 93005; 99283

== ENCOUNTER 2023-01-14 17:20 | Emergency (ER) | payer OTHER, SELFPAY ==
--- NOTE | ~2023-01-14 | CT_ITS ---
CT HEAD WITHOUT CONTRAST CLINICAL INFORMATION: Altered mental status. COMPARISON: CT head 12/13/2020. TECHNIQUE: Contiguous axial imaging was performed from the skull base to vertex without intravenous administration of contrast. This CT examination was performed using dose optimization techniques as appropriate, variously including the following: *Automated exposure control *Adjustment of mA and/or kV according to patient size (this includes techniques or standardized protocols for targeted exams where dose is matched to indication/reason for exam; i.e. extremities or head) *Use of iterative reconstruction technique FINDINGS: There is no intracranial hemorrhage, hydrocephalus, extra-axial surface collection, midline shift, or other herniation pattern. Parker to white matter differentiation is diffusely maintained without evidence of an evolved acute territorial infarct. The basilar cisterns are preserved. No significant soft tissue abnormality. No acute osseous abnormality. The paranasal sinuses and the mastoid air cells are well aerated. CT/CT head/brain wo IV con IMPRESSION: No acute intracranial abnormality.
--- NOTE | 2023-01-14 17:32 | ECG_ITS ---
Test Reason : pain Blood Pressure : / mmHG Vent. Rate : 070 BPM Atrial Rate : 070 BPM P-R Int : 172 ms QRS Dur : 076 ms QT Int : 404 ms P-R-T Axes : 039 006 015 degrees QTc Int : 436 ms Normal sinus rhythm Normal ECG When compared with ECG of 11-DEC-2022 15:14, No significant change was found Referred By: Ruben Snider Electronically Signed By:RENEE CORONA
[2023-01-14 17:41] VITALS: BP 123/73; BP 156/82; PULSE 72; PULSE 82; RESP 18; TEMP 36.9; O2SAT 95; O2SAT 98; BMI 28.4
--- NOTE | 2023-01-14 17:45 | PC.NURSE ---
Patient arrived via ems from home after boyfriend called stating she was unresponsive. Per ems patient responsive only for a brief period of time. Patient changed into hospital attire, placed on monitor, vital obtained. NSR on monitor. GRETCHEN. Boyfriend at bedside stating they were drinking and she fell down, did not trike head. No signs of trauma. VSS.
--- NOTE | 2023-01-14 18:05 | ED.GENADULT ---
HPI - General Adult General Chief complaint: ETOH/Substance Use Stated complaint: severely ETOH, pat not resp to stimuli, per ems Time Seen by Provider: 01/14/23 17:28 Source: patient, family (Boyfriend), EMS, RN notes reviewed and other Mode of arrival: EMS Limitations: other (Patient unresponsive) History of Present Illness HPI narrative: Patient arrives via EMS due to ?severe alcohol intoxication. ? Per EMS, the patient was drinking heavily today responsive to even painful stimuli The patient opens her eyes occasionally but has not been able to give any history I evaluation she does not respond to sternal rub but does open her eyes when I left upper arms She turns her head to the side spontaneously Not respond to commands or answer any question The patient's boyfriend arrived shortly after the patient did He reports that they were both drinking heavily today She started to cry and then ?slowly collapsed to the ground. ? He reports that she did not fall, but rather lowered herself down and that is when he called the ambulance He reports that no other drugs have been ingested as far as he knows Related Data Home Medications Medication Instructions Recorded Confirmed clonazepam 0.5 mg tablet 0.5 mg PO BID PRN 03/25/20 05/30/22 sertraline 100 mg tablet 0 mg PO 03/25/20 05/30/22 Previous Rx's Medication Instructions Recorded ferrous sulfate 325 mg (65 mg 325 mg PO BID #180 tabs 06/01/22 iron) tablet hydrochlorothiazide 25 mg tablet 25 mg PO DAILY 90 days #90 tabs 06/01/22 acetaminophen 500 mg tablet 500 mg PO Q6H PRN fever or pain 12/11/22 (Tylenol Extra Strength) #14 tabs cyclobenzaprine 5 mg tablet 5 mg PO Q8H PRN pain (scale score 12/11/22 7-10) 5 days #14 tabs lidocaine 5 % topical patch 1 patch topical DAILY PRN pain #30 12/11/22 (Lidoderm) ea naproxen 500 mg tablet 500 mg PO BID PRN pain 10 days #20 12/11/22 tabs Allergies Allergy/AdvReac Type Severity Reaction Status Date / Time Penicillins Allergy Intermediate RASH Verified 12/11/22 15:01 Review of Systems Review of Systems: Patient is unable to provide review of systems Yes Unobtainable due to mental status PMFSH Past Medical History Medical History Depression with anxiety Essential hypertension ANNE (generalized anxiety disorder) Iron deficiency anemia Migraines Mild recurrent major depression Surgical History History of carpal tunnel release History of tubal ligation Family History Family History Father Hypertension Mother Hypertension Maternal Grandmother Diabetes Paternal Grandfather Cancer Social History Social History Housing: Apartment Alcohol intake: current Alcohol intake frequency: holidays/special occasions only Alcohol type: beer and wine Patient Tobacco Use Status: Never used Tobacco Smoked in Last 30 Days: No e-Cigarette/Vaping Use: Never Used Second Hand Smoke Exposure: No Use of substances other than those prescribed or required for medical reasons: Unable to respond Substance Use Type: Marijuana Advance Directives: No Advance Directives Information Provided: No service: No Current occupational status: employed Cognitive needs: No Hearing needs: No Vision needs: Yes Physical Exam ED Vital Signs: Vital Signs - 24 hr 01/14/23 17:41 01/14/23 20:52 Temperature 98.4 F 97.7 F Pulse Rate 72 78 Respiratory Rate 18 14 Blood Pressure 123/73 134/86 Pulse Oximetry 98 97 Oxygen Delivery Method Room Air Room Air BMI result Body Mass Index 28.4 Const Other: Exam is limited secondary to patient's mental status. She does not respond to commands. There are no signs of trauma. General: healthy appearing, comfortable and no acute distress Nutritional Appearance: well nourished [facility] Head: Yes normocephalic and Yes atraumatic Throat: Yes posterior oropharynx normal Eyes Eyelids: Yes eyelids normal Conjunctivae: conjunctivae normal Sclerae: sclerae normal Corneas: corneas normal Pupils: Equal, round and reactive pupils present Resp Effort & Inspection: normal respiratory effort, no audible wheezes and not labored Cardio Rate: regular rate Rhythm: regular rhythm GI Inspection: No distended Palpation (GI): Soft to palpation, not firm, nontender, no guarding and not rigid Auscultation: normoactive bowel sounds Skin General skin exam: no rashes or lesions noted and elasticity normal Neuro Cranial nerves: Yes Equal, round and reactive pupils present Extrem Other: Moving all extremities well without any obvious deformities Course Reevaluation(s) Reevaluation #1: Patient has no awake, alert and oriented. She is now conversing with her boyfriend, sitting up in bed. Time: 19:39 Reevaluation #2: Patient remains awake, alert and conversing. She has no deficits at this time, she has no questions. I was able to explain all of her test results with her and encouraged her to avoid excessive consumption of alcohol. She is asymptomatic and has a sober ride home Time: 22:03 Medical Decision Making Medical Decision Making MDM Narrative: 47-year-old female presents for evaluation of reported severe EtOH abuse. Her vital signs are stable on arrival, she does not have pinpoint pupils. Her boyfriend denies any other substance abuse. Given that she is unresponsive and we have a limited history, will check basic labs, ETOH level, drug screen, and a CT scan of the brain. Will continue observation the meantime Differential Diagnosis Differential Diagnoses: The differential diagnosis associated with the presentation includes Alcohol abuse Polysubstance abuse Intracranial hemorrhage Syncope Lab Data 01/14/23 19:52 01/14/23 19:52 Labs: Lab Results 01/14/23 01/14/23 Range/Units 19:52 20:52 WBC 8.1 (4.8-10.8) X10*3/uL RBC 4.41 (4.20-5.50) X10*6/uL Hgb 10.1 L (12.0-16.0) g/dl Hct 32.6 L (37.0-47.0) % MCV 73.9 L (80.0-98.0) fL MCH 22.9 L (27.0-33.0) pg MCHC 31.0 (31.0-35.0) g/dl RDW 17.6 H (11.0-16.0) % Plt Count 480 H (160-400) X10*3/uL MPV 9.5 (9.4-12.3) fL Immature Gran % (Auto) 0.2 (0.0-0.4) % Neut % (Auto) 74.6 H (45-73) % Lymph % (Auto) 19.8 L (20-40) % Nance % (Auto) 4.3 (2-11) % Eos % (Auto) 0.5 (0-4) % Baso % (Auto) 0.6 (0-2) % Lymph # (Auto) 1.6 (1.2-4.9) X10*3/uL Nance # (Auto) 0.4 (0.1-1.2) X10*3/uL Eos # (Auto) 0.0 (0.0-0.4) X10*3/uL Baso # (Auto) 0.1 (0.0-0.2) X10*3/uL Abs Immat Gran (auto) 0.02 (0.00-0.03) X10*3/uL Absolute Neuts (auto) 6.0 (2.0-8.3) x10*3/uL Absolute Nucleated RBC 0.000 (0.0-0.012) X10*3/uL Nucleated RBC % (auto) 0.0 (0.0-0.2) /100WBC Sodium 140 (135-145) mmol/L Potassium 3.6 (3.3-5.1) mmol/L Chloride 108 (96-108) mmol/L Carbon Dioxide 21 L (22-29) mmol/L Anion Gap 15 (12-20) BUN 12 (9-16) mg/dL Creatinine 0.76 (0.5-1.4) mg/dL Estim Creat Clear Calc 95.2 Estimated GFR > 60 Random Glucose 109 (60-115) mg/dL Calcium 9.6 (8.4-10.2) mg/dL Total Bilirubin 0.3 (0.0-1.0) mg/dL AST 26 (5-31) U/L ALT 18 (0-31) U/L Alkaline Phosphatase 46 (39-117) U/L Total Protein 7.8 (6.5-8.0) g/dL Albumin 4.3 (3.5-5.0) g/dL Lipase 18 (8-78) U/L Beta HCG, Quant < 2 mIU/mL Urine Color Yellow Urine Appearance Clear Urine pH 5.5 (5.0-9.0) Ur Specific [place] <= 1.005 (1.005-1.025) Urine Protein Negative (Neg-Trace) mg/dL Urine Glucose (UA) Negative (Negative) mg/dL Urine Ketones Negative (Negative) mg/dL Urine Blood Negative (Negative) Urine Nitrite Negative (Negative) Ur Leukocyte Esterase Moderate (2+) H (Negative) Urine RBC 0-2 (0-2) /HPF Urine WBC 6-10 H (0-5) /HPF Ur Squamous Epith Cells 11-20 (0-2) /HPF Urine Bacteria Trace (None Seen) Hyaline Casts 0-2 (0-2) /LPF Ethyl Alcohol 124 mg/dL Discharge Plan Discharge Clinical Impression: Alcoholic intoxication Patient Disposition: Home, Self-Care Instructions: Alcohol Intoxication (ED) Additional Instructions: Your workup in the emergency room today was reassuring. This includes your blood work, CT scan imaging Avoid excessive consumption of alcohol Prescriptions: No Action hydrochlorothiazide 25 mg tablet 25 mg PO DAILY 90 Days Qty: 90 4RF ferrous sulfate 325 mg (65 mg iron) tablet 325 mg PO BID Qty: 180 5RF acetaminophen [Tylenol Extra Strength] 500 mg tablet 500 mg PO Q6H PRN (Reason: fever or pain) Qty: 14 0RF lidocaine [Lidoderm] 5 % adhesive patch,medicated 1 patch topical DAILY MDD remove after 12 hours PRN (Reason: pain) Qty: 30 0RF Rx Instructions: leave on most painful area for up to 12 hrs cyclobenzaprine 5 mg tablet 5 mg PO Q8H PRN (Reason: pain (scale score 7-10)) 5 Days Qty: 14 0RF naproxen 500 mg tablet 500 mg PO BID PRN (Reason: pain) 10 Days Qty: 20 0RF sertraline 100 mg tablet 0 mg PO clonazepam 0.5 mg tablet 0.5 mg PO BID PRN
--- NOTE | 2023-01-14 19:38 | PC.NURSE ---
I assumed care of the pt at 1900. At that time, pt was sitting straight up in bed, tracking appropriately with her eyes. When I asked pt to state her name, she had to read it from the bracelet. Pt was unable to answer where she is or what time it is. Pt appears agitated and continues to pull at her IV and cardiac leads. Significant other is at the bedside, consoling pt. Pt requesting something to drink, fluids held for the time being. Tech is attempting blood draw at this time.
--- NOTE | 2023-01-14 19:54 | PC.NURSE ---
Blood work obtained, Pt attempted to stand with tech but was unable to stand and her legs began to give out on her. Pt was placed back in bed.
[2023-01-14 19:59] LABS: MANUAL DIFF FLAG NO
[2023-01-14 20:20] LABS: Alanine Aminotransferase 18 U/L (0-31); Albumin Level 4.3 g/dL (3.5-5.0); Alkaline Phosphatase 46 U/L (39-117); Anion Gap 15 (12-20); Aspartate Amino Transferase 26 U/L (5-31); Bilirubin Total 0.3 mg/dL (0.0-1.0); Blood Urea Nitrogen 12 mg/dL (9-16); Calcium 9.6 mg/dL (8.4-10.2); Carbon Dioxide 21 mmol/L (22-29); Chloride 108 mmol/L (96-108); Creatinine Clr Calc Pharmacy 95.2; Estimated Glomerular Filt Rate > 60; Ethanol 124 mg/dL; Glucose Random 109 mg/dL (60-115); Lipase 18 U/L (8-78); Potassium 3.6 mmol/L (3.3-5.1); Sodium 140 mmol/L (135-145); Total Protein 7.8 g/dL (6.5-8.0)
[2023-01-14 20:21] LABS: HCG Quantitative < 2 mIU/mL
[2023-01-14 20:29] LABS: Basophils Absolute Auto 0.1 X10*3/uL (0.0-0.2); Basophils Percent Auto 0.6 % (0-2); Eosinophils Percent Auto 0.5 % (0-4); Hematocrit 32.6 % (37.0-47.0); Hemoglobin 10.1 g/dl (12.0-16.0); Imm Gran Abs Auto 0.02 X10*3/uL (0.00-0.03); Imm Gran Pct Auto 0.2 % (0.0-0.4); Lymphocytes Absolute Auto 1.6 X10*3/uL (1.2-4.9); Lymphocytes Percent Auto 19.8 % (20-40); Mean Corpuscular Hemoglobin 22.9 pg (27.0-33.0); Mean Corpuscular Volume 73.9 fL (80.0-98.0); Mean Platelet Volume 9.5 fL (9.4-12.3); Monocytes Absolute Auto 0.4 X10*3/uL (0.1-1.2); Monocytes Percent Auto 4.3 % (2-11); Neutrophils Percent Auto 74.6 % (45-73); Platelet Count 480 X10*3/uL (160-400); Red Blood Count 4.41 X10*6/uL (4.20-5.50); Red Cell Distribution Width 17.6 % (11.0-16.0); White Blood Count 8.1 X10*3/uL (4.8-10.8)
--- NOTE | 2023-01-14 20:48 | PC.NURSE ---
Pt is currently awake, sitting on her phone. Pt is A&Ox3, was able to tell me her name, that she is in the hospital, and that it is Sunday. Pt reports a minor headache, no pain anywhere else. Denies drug use. Pt stated that the last thing she remembers is drinking beer and dancing with her significant other. Significant other confirmed that that was around the time the episode started. Pt requested water, wIll swallow eval.
[2023-01-14 20:52] VITALS: BP 134/86; PULSE 78; RESP 14; TEMP 36.5; O2SAT 97
--- NOTE | 2023-01-14 20:53 | PC.NURSE ---
Pt passed swallow Eval, reports 7/10 headache. Pt was able to sit up on her own ,reports dizziness when doing so.
[2023-01-14 21:01] LABS: Appearance Urine Clear; Color Urine Yellow; Glucose Urine UA Negative (Negative); Leukocyte Esterase Urine Moderate (2+) (Negative); Nitrite Urine Negative (Negative); PH 5.5 (5.0-9.0); Specific Gravity - Urine <= 1.005 (1.005-1.025); UMIC TRIGGER UACC YES; Urine Blood Negative (Negative); Urine Ketones Negative (Negative); Urine Protein Negative (Neg-Trace)
[2023-01-14 21:06] LABS: Bacteria Urine Trace (None Seen); Hyaline Casts Urine 0-2 /LPF (0-2); RBC Urine 0-2 /HPF (0-2); UACC Culture Trigger YES
[2023-01-14 23:12] LABS: Amphetamine Screen Urine Not Detected (Not Detect); Barbiturates, Urine Not Detected (Not Detect); Benzodiazepines Screen Urine Not Detected (Not Detect); Cannabinoid Screen Urine Not Detected (Not Detect); Cocaine Screen Urine Not Detected (Not Detect); Fentanyl, urine Not Detected (Not Detect); Opiate Screen Urine Not Detected (Not Detect); Phencyclidine Screen Urine Not Detected (Not Detect)
== END 2023-01-14 22:14 | disposition home or self-care (01) ==
PROVIDERS: Physician Assistant; Emergency Provider Emergency Medicine Emergency Medical Services
DX: F10.129 Alcohol abuse with intoxication, unspecified (principal); Y90.6 Blood alcohol level of 120-199 mg/100 ml; R41.82 Altered mental status, unspecified; R07.89 Other chest pain; Z79.899 Other long term (current) drug therapy; Z71.41 Alcohol abuse counseling and surveillance of alcoholic
CPT/HCPCS: 36415; 70450; 80053; 80307; 81001; 81003; 83690; 84702; 85025; 87086; 87147; 93005; 99285

== ENCOUNTER 2024-02-06 18:24 | Emergency (ER) | payer OTHER, SELFPAY ==
--- NOTE | ~2024-02-06 | CT_ITS ---
EXAMINATION: CT HEAD WITHOUT CONTRAST CLINICAL INFORMATION: Hypertension. Head pressure. Right eye pain. COMPARISON: CT head from 01/14/2023. TECHNIQUE: Contiguous axial imaging was performed from the skull base to vertex without intravenous administration of contrast. This CT examination was performed using dose optimization techniques as appropriate, variously including the following: *Automated exposure control. *Adjustment of mA and/or kV according to patient size (this includes techniques or standardized protocols for targeted exams where dose is matched to indication/reason for exam; i.e. extremities or head). *Use of iterative reconstruction technique. DLP: 690 mGy-cm FINDINGS: There is no evidence of acute intracranial hemorrhage or edematous territorial infarction. Parker-white matter differentiation is preserved. There is no abnormal attenuation within the brain parenchyma. The ventricles are normal in morphology and size. No evidence for obstructive hydrocephalus. The suprasellar cistern remains widely patent. Normal positioning of the cerebellar tonsils. No abnormal mass effect or midline shift. No extra-axial fluid collections. No acute soft tissue or osseous abnormalities. Mild mucosal thickening of the paranasal sinuses. The mastoid air cells and middle ear cavities are clear. No demonstrated abnormalities of the orbits on limited evaluation. CT/CT head/brain wo IV con IMPRESSION: No evidence of acute intracranial hemorrhage or edematous territorial infarction. Electronically signed by: Alfredo Ewing DO 02/06/2024 10:39 PM EDT
[2024-02-06 18:28] VITALS: BP 158/102; PULSE 100; RESP 19; TEMP 36.6; O2SAT 98; BMI 30.1
--- NOTE | 2024-02-06 18:30 | ECG_ITS ---
Test Reason : headaches Blood Pressure : / mmHG Vent. Rate : 091 BPM Atrial Rate : 091 BPM P-R Int : 162 ms QRS Dur : 078 ms QT Int : 360 ms P-R-T Axes : 035 -08 017 degrees QTc Int : 442 ms Normal sinus rhythm Normal EKG When compared with ECG of 14-JAN-2023 20:33, No significant changes seen Referred By: Tiki Leon Electronically Signed By:KENDRICK MYERS
[2024-02-06 19:09] LABS: MANUAL DIFF FLAG NO
[2024-02-06 19:28] LABS: Alanine Aminotransferase 13 U/L (0-31); Albumin Level 4.2 g/dL (3.5-5.0); Alkaline Phosphatase 70 U/L (39-117); Anion Gap 14 (12-20); Aspartate Amino Transferase 14 U/L (5-31); Bilirubin Total 0.2 mg/dL (0.0-1.0); Blood Urea Nitrogen 19 mg/dL (9-16); Calcium 9.8 mg/dL (8.4-10.2); Carbon Dioxide 27 mmol/L (22-29); Chloride 103 mmol/L (96-108); Estimated Glomerular Filt Rate > 60; Glucose Random 137 mg/dL (60-115); INTERNATIONAL NORM RATIO 0.9 (0.9-1.1); Potassium 3.3 mmol/L (3.3-5.1); Prothrombin Time 9.9 SEC (10.9-12.4); Sodium 141 mmol/L (135-145); Total Protein 7.7 g/dL (6.5-8.0)
[2024-02-06 19:37] LABS: Basophils Absolute Auto 0.1 X10*3/uL (0.0-0.2); Basophils Percent Auto 0.9 % (0-2); Eosinophils Absolute Auto 0.1 X10*3/uL (0.0-0.4); Eosinophils Percent Auto 0.9 % (0-4); Hematocrit 33.3 % (37.0-47.0); Hemoglobin 10.5 g/dl (12.0-16.0); Imm Gran Abs Auto 0.08 X10*3/uL (0.00-0.03); Imm Gran Pct Auto 1.1 % (0.0-0.4); Lymphocytes Absolute Auto 1.7 X10*3/uL (1.2-4.9); Lymphocytes Percent Auto 22.6 % (20-40); Mean Corpuscular HGB Conc 31.5 g/dl (31.0-35.0); Mean Corpuscular Volume 76.2 fL (80.0-98.0); Mean Platelet Volume 9.3 fL (9.4-12.3); Monocytes Absolute Auto 0.6 X10*3/uL (0.1-1.2); Monocytes Percent Auto 7.4 % (2-11); Neutrophils Percent Auto 67.1 % (45-73); Platelet Count 484 X10*3/uL (160-400); Red Blood Count 4.37 X10*6/uL (4.20-5.50); White Blood Count 7.5 X10*3/uL (4.8-10.8)
[2024-02-06 21:15] VITALS: BP 157/92; PULSE 86; RESP 16; TEMP 37.1; O2SAT 100
--- NOTE | 2024-02-06 21:25 | ED.GENADULT ---
HPI - General Adult General Chief complaint: Headache Stated complaint: headache/RT eye pain and pressure Time Seen by Provider: 02/06/24 21:25 History of Present Illness ED Provider: Palmer ALVAREZ narrative: The patient is a 48-year-old woman with a history of hypertension who says that she has had a headache for about 5 days. She says the headache started at about 08:00 in the morning 5 days ago. It was gradual onset. She says 1st she felt it in the right side of her neck. Subsequently the headache extended to her head generally. She feels a primarily behind the right eye. She has not had any fever. No neck stiffness. Related Data Home Medications ?Medication ?Instructions ?Recorded ?Confirmed clonazepam 0.5 mg tablet 0.5 mg PO BID PRN 03/25/20 05/30/22 sertraline 100 mg tablet 0 mg PO 03/25/20 05/30/22 Previous Rx's ?Medication ?Instructions ?Recorded ferrous sulfate 325 mg (65 mg 325 mg PO BID #180 tabs 06/01/22 iron) tablet acetaminophen 500 mg tablet 500 mg PO Q6H PRN fever or pain 12/11/22 (Tylenol Extra Strength) #14 tabs cyclobenzaprine 5 mg tablet 5 mg PO Q8H PRN pain (scale score 12/11/22 7-10) 5 days #14 tabs lidocaine 5 % topical patch 1 patch topical DAILY PRN pain #30 12/11/22 (Lidoderm) ea naproxen 500 mg tablet 500 mg PO BID PRN pain 10 days #20 12/11/22 tabs hydrochlorothiazide 25 mg tablet 25 mg PO DAILY 90 days #90 tabs 08/23/23 Allergies Allergy/AdvReac Type Severity Reaction Status Date / Time Penicillins Allergy Intermediate RASH Verified 02/06/24 18:30 Review of Systems Review of Systems: Yes all other systems are reviewed and are negative [facility] Past Medical History Medical History Depression with anxiety Essential hypertension ANNE (generalized anxiety disorder) Iron deficiency anemia Migraines Mild recurrent major depression Surgical History History of carpal tunnel release History of tubal ligation Family History Family History Father Hypertension Mother Hypertension Maternal Grandmother Diabetes Paternal Grandfather Cancer Social History Social History Housing: Apartment Alcohol intake: current Alcohol intake frequency: holidays/special occasions only Alcohol type: beer and wine Patient Tobacco Use Status: Never used Tobacco e-Cigarette/Vaping Use: Never Used Second Hand Smoke Exposure: No Substance Use Type: Marijuana Advance Directives: No Advance Directives Information Provided: No Do you have a plan to hurt others: No Plan service: No Current occupational status: employed Cognitive needs: No Hearing needs: No Vision needs: Yes Physical Exam ED Vital Signs: Vital Signs - 24 hr 02/06/24 18:28 02/06/24 21:15 02/06/24 22:35 Temperature 98 F 98.8 F 97.9 F Pulse Rate 100 86 77 Respiratory Rate 19 16 12 Blood Pressure 158/102 H 157/92 H 99/57 L Pulse Oximetry 98 100 98 Oxygen Delivery Method Room Air Room Air Room Air 02/06/24 23:44 Temperature 98.2 F Pulse Rate 72 Respiratory Rate 16 Blood Pressure 103/69 Pulse Oximetry 98 Oxygen Delivery Method Room Air BMI result Body Mass Index 30.1 Const Other: The patient is awake, alert, pleasant, cooperative. Mental status is normal. She does not appear toxic or in distress. HENMT Other: Face is symmetrical. Mucous membranes moist. Eyes General: appearance normal, both eyes and all related structures Neck Other: She can easily touch her chin to her chest without apparent discomfort. Resp Effort & Inspection: normal respiratory effort Auscultation: clear to auscultation bilaterally Cardio Rate: regular rate Rhythm: regular rhythm Heart sounds: S1 normal heart sound present and S2 normal heart sound present GI Other: Abdomen is soft and nontender Skin Other: Skin is dry and unremarkable Neuro Other: The patient is awake and alert with a normal mental status. Cranial nerves 2-12 are grossly intact. She moves her extremities normally and appropriately and seems neurologically intact. Extrem Other: No calf swelling or tenderness. No asymmetry. No edema. Medications Administered Discontinued Medications Generic Name Dose Route Start Last Admin Trade Name Freq PRN Reason Stop Dose Admin Acetaminophen 975 mg 02/06/24 21:35 02/06/24 21:52 Acetaminophen 325 Mg Tablet PO 02/06/24 21:36 975 mg ONCE ONE Administration Diphenhydramine HCl 25 mg 02/06/24 21:35 02/06/24 21:52 Diphenhydramine Hcl 50 Mg/Ml Vial IVPUSH 02/06/24 21:36 25 mg ONCE ONE Administration Ketorolac Tromethamine 10 mg 02/06/24 21:35 02/06/24 21:51 Ketorolac Tromethamine 15 Mg/Ml Vial IVPUSH 02/06/24 21:36 10 mg ONCE ONE Administration Metoclopramide HCl 10 mg 02/06/24 21:35 02/06/24 21:51 Metoclopramide Hcl 10 Mg/2 Ml Vial IVPUSH 02/06/24 21:36 10 mg ONCE ONE Administration Medical Decision Making Medical Decision Making [facility] Narrative: The patient is a 48-year-old female who presents with a complaint of a headache. Her description of the headache is suggestive of a possible migraine syndrome. She had labs and a CT of the brain ordered at triage. These are unremarkable. The patient was treated symptomatically with metoclopramide, ketorolac, diphenhydramine, and acetaminophen. She had resolution of her headache and seemed very happy to go home. Lab Data 02/06/24 18:56 02/06/24 18:56 Labs: Lab Results 02/06/24 Range/Units 18:56 WBC 7.5 (4.8-10.8) X10*3/uL RBC 4.37 (4.20-5.50) X10*6/uL Hgb 10.5 L (12.0-16.0) g/dl Hct 33.3 L (37.0-47.0) % MCV 76.2 L (80.0-98.0) fL MCH 24.0 L (27.0-33.0) pg MCHC 31.5 (31.0-35.0) g/dl RDW 18.0 H (11.0-16.0) % Plt Count 484 H (160-400) X10*3/uL MPV 9.3 L (9.4-12.3) fL Immature Gran % (Auto) 1.1 H (0.0-0.4) % Neut % (Auto) 67.1 (45-73) % Lymph % (Auto) 22.6 (20-40) % [place] % (Auto) 7.4 (2-11) % Eos % (Auto) 0.9 (0-4) % Baso % (Auto) 0.9 (0-2) % Lymph # (Auto) 1.7 (1.2-4.9) X10*3/uL [place] # (Auto) 0.6 (0.1-1.2) X10*3/uL Eos # (Auto) 0.1 (0.0-0.4) X10*3/uL Baso # (Auto) 0.1 (0.0-0.2) X10*3/uL Abs Immat Gran (auto) 0.08 H (0.00-0.03) X10*3/uL Absolute Neuts (auto) 5.0 (2.0-8.3) x10*3/uL Absolute Nucleated RBC 0.000 (0.0-0.012) X10*3/uL Nucleated RBC % (auto) 0.0 (0.0-0.2) /100WBC PT 9.9 L (10.9-12.4) SEC INR 0.9 (0.9-1.1) Sodium 141 (135-145) mmol/L Potassium 3.3 (3.3-5.1) mmol/L Chloride 103 (96-108) mmol/L Carbon Dioxide 27 (22-29) mmol/L Anion Gap 14 (12-20) BUN 19 H (9-16) mg/dL Creatinine 0.99 (0.5-1.4) mg/dL Estim Creat Clear Calc 69.0 Estimated GFR > 60 Random Glucose 137 H (60-115) mg/dL Calcium 9.8 (8.4-10.2) mg/dL Magnesium 2.0 (1.6-2.6) mg/dL Total Bilirubin 0.2 (0.0-1.0) mg/dL AST 14 (5-31) U/L ALT 13 (0-31) U/L Alkaline Phosphatase 70 (39-117) U/L Total Protein 7.7 (6.5-8.0) g/dL Albumin 4.2 (3.5-5.0) g/dL Independent Interpretation I performed an independent interpretation of an: EKG Interpretation: EKG at 18:53 shows normal sinus rhythm at 91 beats per minute. No definite acute ischemic changes. Discharge Plan Discharge Clinical Impression: Migraine headache Patient Disposition: Home, Self-Care Instructions: Migraine Headache (ED) Additional Instructions: I believe your headache has been a migraine headache. You improved with medications that we usually used to treat a migraine headache. Please plan on following up with your regular doctor. Return to the emergency room if worse. Prescriptions: No Action ferrous sulfate 325 mg (65 mg iron) tablet 325 mg PO BID Qty: 180 5RF hydrochlorothiazide 25 mg tablet 25 mg PO DAILY 90 Days Qty: 90 4RF acetaminophen [Tylenol Extra Strength] 500 mg tablet 500 mg PO Q6H PRN (Reason: fever or pain) Qty: 14 0RF lidocaine [Lidoderm] 5 % adhesive patch,medicated 1 patch topical DAILY MDD remove after 12 hours PRN (Reason: pain) Qty: 30 0RF Rx Instructions: leave on most painful area for up to 12 hrs cyclobenzaprine 5 mg tablet 5 mg PO Q8H PRN (Reason: pain (scale score 7-10)) 5 Days Qty: 14 0RF naproxen 500 mg tablet 500 mg PO BID PRN (Reason: pain) 10 Days Qty: 20 0RF sertraline 100 mg tablet 0 mg PO clonazepam 0.5 mg tablet 0.5 mg PO BID PRN Referrals: Lupe Barcenas MD [Primary Care Provider] - (Migraine headache) Interventions: ED Discharge Assessment Last Done: 02/06/24 23:44 Discharge Date/Time: 02/06/24 23:46 Print Language: Cypriot
[2024-02-06] MEDS: Ketorolac Tromethamine 15 MG/ML VIAL 10 MG IVPUSH (21:51)
[2024-02-06] MEDS: Metoclopramide HCl 10 MG/2 ML VIAL IVPUSH (21:51)
[2024-02-06] MEDS: diphenhydrAMINE HCL 50 MG/ML VIAL 25 MG IVPUSH (21:52)
[2024-02-06] MEDS: Acetaminophen 325 MG TABLET 975 MG PO (21:52)
[2024-02-06 22:35] VITALS: BP 99/57; PULSE 77; RESP 12; TEMP 36.6; O2SAT 98
--- NOTE | 2024-02-06 22:50 | PC.NURSE ---
patient denies any complaints at this time and states she feels much relief from medicaitons and currently has no heachache. aware.
[2024-02-06 23:44] VITALS: BP 103/69; PULSE 72; RESP 16; TEMP 36.8; O2SAT 98
== END 2024-02-06 23:46 | disposition home or self-care (01) ==
PROVIDERS: Physician Assistant Medical; Emergency Provider Emergency Medicine; PCP Internal Medicine
DX: G43.909 Migraine, unspecified, not intractable, without status migrainosus (principal); I10 Essential (primary) hypertension; F12.90 Cannabis use, unspecified, uncomplicated; D50.9 Iron deficiency anemia, unspecified; Z79.899 Other long term (current) drug therapy
CPT/HCPCS: 36415; 70450; 80053; 83735; 85025; 85610; 93005; 96374; 96375; 99284; J1200; J1885; J2765

== ENCOUNTER → 2024-02-06 18:30 | Outpatient (BNV) | payer OTHER, SELFPAY | PROVIDERS: Emergency Provider Emergency Medicine; PCP Internal Medicine; Visit Provider Internal Medicine | DX: R51.9 Headache, unspecified (principal) | CPT/HCPCS: 93010 ==

== ENCOUNTER 2024-02-13 17:38 | Outpatient (AMB) | payer OTHER, SELFPAY ==
[2024-02-13 17:40] VITALS: BP 164/100; BMI 29.9
--- NOTE | 2024-02-13 17:40 | MHC.PC.OV ---
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: No Accompanied by: Self / Same As Patient Allergies Penicillins Allergy (Intermediate, Verified 02/13/24 17:50) RASH Medication List - Last Reconciled 02/13/24 by Lupe Cortes MD clonazepam 0.5 mg PO BID PRN hydrochlorothiazide 25 mg PO DAILY 90 days sertraline 0 mg PO Tobacco use date assessed: 02/13/24 Dental Screening Dental Screen Date: 02/13/24 Did you have a dental visit in the last 12 months?: No Did you have a dental problem in the last 6 months where you did not have access to dental care?: No Was dental information given to patient?: Patient has dentist HPI HPI Comments History of Present Illness Details This is a 48 year old female with mild recurrent major depression that comes for her physical exam. She follows with psychiatry for her depression which has been stable with SSRIs. Last mammogram was over a year ago. Last Pap smear was 2017 and will be refer to freelance court stenographer for this matter. Will be refer for colonoscopy through open access. Has elevated blood pressure and I will change HCTZ to Losartan. Blood pressure will be recheck in 3 weeks. Complaints of blurry vision and will be refer to ophthalmology. [facility] Medical History (Updated 02/13/24 @ 17:58 by Lupe Cortes MD) Migraines ANNE (generalized anxiety disorder) Mild recurrent major depression Iron deficiency anemia Depression with anxiety Essential hypertension Surgical History History of carpal tunnel release History of tubal ligation Family History Father Hypertension Mother Hypertension Maternal Grandmother Diabetes Paternal Grandfather Cancer Social History Housing: Apartment Alcohol intake: current Alcohol intake frequency: holidays/special occasions only Alcohol type: beer and wine Patient Tobacco Use Status: Never used Tobacco e-Cigarette/Vaping Use: Never Used Second Hand Smoke Exposure: No Substance Use Type: Marijuana service: No Current occupational status: employed Current occupational exposures/hazards: No Cognitive needs: No Hearing needs: No Vision needs: Yes Questionnaire PHQ-9 Over the last 2 weeks, how often have you been bothered by any of the following problems? 1. Little interest or pleasure in doing things: several days 2. Feeling down, depressed, or hopeless: several days 3. Trouble falling or staying asleep, or sleeping too much: nearly every day 4. Feeling tired or having little energy: not at all 5. Poor appetite or overeating: not at all 6. Feeling bad about yourself - or that you are a failure or have let yourself or your family down: not at all 7. Trouble concentrating on things, such as reading the newspaper or watching television: not at all 8. Moving or speaking so slowly that other people could have noticed. Or the opposite - being so fidgety or restless that you have been moving around a lot more than usual: not at all 9. Thoughts that you would be better off or of hurting yourself in some way: not at all Total score: 5 Depression Screening Interpretation: Positive Depression Screening Follow-up: Existing condition, In treatment, Community Mental Health Worker F/U and Follow-up Visit Requested Depression Screening Done: Yes 13815 - PHQ-9 Billing: Yes Source: Developed by Drs. Ricky Mendez, Melanie Jain, Josh Presley and colleagues, with an educational ricarda from [employer]. Thrive Questionnaire Date Thrive assessed: 02/13/24 I am a: Patient What is your living situation today?: I have a steady place to live Within the past 12 months, did the food you bought not last and you didn't have the money to get more?: I choose not to answer this question Within the past 12 months, did you worry whether your food would run out before you got money to buy more?: Sometimes True Do you have trouble paying for medicines?: No Do you have trouble getting transportation to medical appointments?: No Do you have trouble paying your heating and electricity bill?: No Do you have trouble taking care of your child, family member or friend?: No Do you have trouble with day-to-day activities such as bathing, preparing meals, shopping, managing finances, etc.?: No Are you currently unemployed and looking for a job?: No Are you interested in more education?: No Please select the resources that you would like help with: None Currently or been in a relationship where the following occur: I choose not to answer THRIVE Score: 1 AUDIT C Alcohol Use Questionnaire (AUDIT-C) 1. How often do you have a drink containing alcohol?: 2-4 times a month 2. How many drinks containing alcohol do you have on a typical day when you are drinking?: 3 or 4 3. How often do you have six or more drinks on one occasion?: Never Total Score: 3 ANNE-7 AMB Questionnaire ANNE-7 Date ANNE - 7 assessed: 02/13/24 Feeling nervous, anxious, or on edge: 1 = Several days Not being able to stop or control worryin = Several days Worrying too much about different things: 1 = Several days Trouble relaxin = Several days Being so restless that it is hard to sit still: 1 = Several days Becoming easily annoyed or irritable: 1 = Several days Feeling afraid as if something awful might happen: 1 = Several days Total ANNE-7 score (0-4 normal; 5-9 mild; 10-14 moderate; 15-21 severe): 7 Source: Developed by Drs. Ricky Mendez, Melanie Jain, Josh Presley and colleagues, with an educational ricarda from [employer]. ANNE-7 Assessment Billing ANNE-7 Assessment Tool: ANNE-7 Assessment 46547 Review of Systems Const All systems reviewed & are unremarkable except as noted in HPI and below Card Denies chest pain at rest, Denies chest pain with activity, Denies edema, Denies irregular heart rhythm, Denies claudication, Denies dyspnea, Denies dyspnea on exertion, Denies orthopnea, Denies paroxysmal nocturnal dyspnea and Denies slow heart rate Resp Denies cough, Denies dyspnea and Denies dyspnea on exertion GI Denies abdominal pain, Denies change in bowel habits, Denies excessive flatus, Denies nausea and Denies vomiting Denies urinary incontinence, Denies urinary hesitancy and Denies urinary urgency Musc Denies abnormal gait, Denies atrophy, Denies deformity and Denies limited range of motion Skin/Breast Denies bleeding lesions, Denies changing lesions and Denies rash Neuro Denies abnormal gait, Denies behavioral changes and Denies lack of coordination Psych Denies behavioral changes Physical exam (Primary Care) Vital Signs: Last Vital Signs BP 160/100 H 02/13/24 18:01 Care Plan Goal for BP management: Change HCTZ to Losartan Next steps: Recheck BP with nurse navigator in 3 weeks BMI result Body Mass Index 29.9 BMI Assessment/Plan discussion: High BMI High, discussed plan: lifestyle, weight reduction, dietary and physical activity Tobacco/Smoking Status: Tobacco use Status Tobacco use date assessed 02/13/24 02/13/24 17:46 Patient Tobacco Use Status Never used Tobacco 02/13/24 17:46 Tobacco use type 12/14/21 14:38 e-Cigarette/Vaping Use Never Used 02/13/24 17:46 PHQ-9: PHQ-9 Score PHQ-9: Total score 5 02/13/24 17:54 Depression Screening Interpretation: Positive Depression Screening Follow-up: Existing condition, In treatment, Community Mental Health Worker F/U and Follow-up Visit Requested Thrive Assessment: Date of Thrive Assessment Date Thrive assessed 02/13/24 02/13/24 17:46 Currently or been in a relationship where the following occur: I choose not to answer HENMT Head: Yes normal to inspection, Yes normocephalic and Yes atraumatic Ears: external ears normal Eyes General: appearance normal, both eyes and all related structures Eyelids: Yes eyelids normal Conjunctivae: conjunctivae normal Neck Neck: Yes normal visual inspection and Yes supple Resp Effort & Inspection: normal respiratory effort Auscultation: clear to auscultation bilaterally Cardio Jugular venous distension: no JVD Rate: regular rate Rhythm: regular rhythm Heart sounds: S1 normal heart sound present and S2 normal heart sound present GI Inspection: Yes normal to inspection Palpation (GI): Soft to palpation and nontender Auscultation: normal bowel sounds Skin General skin exam: no rashes or lesions noted Neuro General: no focal motor deficits Extrem General: Yes full ROM Psych Appearance: grossly normal Office Procedures Flu Questionnaire Does the patient have a severe egg allergy?: No Immunizations Fluarix Triv [id number] (PF) 45 mcg (15 mcg x 3)/0.5 mL IM syringe Performing Provider: Lupe Cortes MD [place] [facility] [place] [facility] Documented (not given) by: RON Mccollum on 02/13/24 17:46 Reason Not Given: Patient Refused Coding Level of Care Code Est Pt Level 3 (91974) Est Pt Prev Care 40-64y(79298) Diagnoses Physical exam Z00.00 Mild recurrent major depression F33.0 Blurry vision H53.8 Additional Codes ANNE-7 Assessment Billing - ANNE-7 Assessment Tool: ANNE-7 Assessment 52613 ([id number]) Time Spent (min) 31 Assessment & Plan Assessment & Plan (1) Physical exam: Code(s): Z00.00 - Encounter for general adult medical examination without abnormal findings Category: Medical Plan: Repeat in a year. (2) Mild recurrent major depression: Code(s): F33.0 - Major depressive disorder, recurrent, mild Category: Medical Plan: Continue SSRIs. (3) Blurry vision: Code(s): H53.8 - Other visual disturbances Category: Medical Plan: Refer to ophthalmology. Orders: Orders Influenza [id number] Immunization Today Z23 - Encounter for immunization MM tomosynthesis screening BI Today Z12.31 - Encounter for screening mammogram for malignant neoplasm of breast Referrals Open Access Screening Colonoscopy Referral Z12.12 - Encounter for screening for malignant neoplasm of rectum INTERNAL MEDICINE PHYSICIAN ASSISTANT Referral Z12.4 - Encounter for screening for malignant neoplasm of cervix Ophthalmology Referral H53.8 - Other visual disturbances Medications: New losartan 25 mg PO DAILY 90 tabs 1RF 90 days ferrous sulfate 325 mg PO DAILY 90 tabs 1RF 90 days Discontinued hydrochlorothiazide Discontinued Reason: Patient Completed Course 25 mg PO DAILY 90 days 90 tabs 4RF I10 - Essential (primary) hypertension
[2024-02-13 18:01] VITALS: BP 160/100
== END 2024-02-13 18:06 | disposition home or self-care (01) ==
PROVIDERS: PCP Internal Medicine; Visit Provider Internal Medicine
DX: Z00.00 Encounter for general adult medical examination without abnormal findings (principal); F33.0 Major depressive disorder, recurrent, mild; H53.8 Other visual disturbances

== ENCOUNTER → 2024-02-13 17:38 | Outpatient (BNVA) | payer OTHER, SELFPAY | PROVIDERS: PCP Internal Medicine; Visit Provider Internal Medicine | DX: Z00.00 Encounter for general adult medical examination without abnormal findings (principal); F33.0 Major depressive disorder, recurrent, mild; H53.8 Other visual disturbances; Z28.21 Immunization not carried out because of patient refusal | CPT/HCPCS: 90471; 96127; 99212; 99396 ==

== ENCOUNTER → 2024-04-02 09:30 | Outpatient (BNV) | payer OTHER, SELFPAY | PROVIDERS: PCP Internal Medicine; Visit Provider Internal Medicine | DX: Z12.31 Encounter for screening mammogram for malignant neoplasm of breast (principal) | CPT/HCPCS: 77063; 77067 ==

== ENCOUNTER 2024-04-02 09:44 | Outpatient (REF) | payer OTHER, SELFPAY | END 2024-04-02 09:45 | disposition home or self-care (01) | LOC: HO.MAMMO 09:44 | PROVIDERS: PCP Internal Medicine; Visit Provider Internal Medicine | DX: Z12.31 Encounter for screening mammogram for malignant neoplasm of breast (principal) | CPT/HCPCS: 77063; 77067 ==

== ENCOUNTER → 2024-10-27 05:38 | Outpatient (BNV) | payer OTHER, SELFPAY | PROVIDERS: Emergency Provider Emergency Medicine; PCP Internal Medicine; Visit Provider Radiology Diagnostic Radiology | DX: R07.9 Chest pain, unspecified (principal) | CPT/HCPCS: 71045 ==

== ENCOUNTER 2024-10-27 06:18 | Emergency (ER) | payer OTHER, SELFPAY ==
--- NOTE | 2024-10-27 | ECG_ITS ---
Test Reason : cp Blood Pressure : */* mmHG Vent. Rate : 68 BPM Atrial Rate : 68 BPM P-R Int : 168 ms QRS Dur : 76 ms QT Int : 394 ms P-R-T Axes : 19 60 37 degrees QTcB Int : 418 ms Normal sinus rhythm Normal ECG When compared with ECG of 06-Feb-2024 18:53, Criteria for Septal infarct are no longer Present Minimal criteria for Inferior infarct are no longer Present Referred By: Generic ED Physician Electronically Signed By: Venancio Elam
--- NOTE | ~2024-10-27 | XR_ITS ---
CLINICAL HISTORY: chest pain Chest radiograph AP view Comparison: None Findings: Top-normal heart size. No consolidations. No pleural effusion. No pneumothorax. No acute fracture. Soft tissue is unremarkable. Impression: No acute cardiopulmonary finding. This document has been electronically signed by: Jenny Ratliff MD on 10/27/2024 08:40:04
[2024-10-27 06:29] VITALS: BP 168/77; PULSE 69; RESP 16; TEMP 36.7; O2SAT 97; BMI 32.6
[2024-10-27 06:35] VITALS: BP 168/77; PULSE 69; RESP 16; TEMP 36.7; O2SAT 97
--- NOTE | 2024-10-27 08:17 | ED.GENADULT ---
[facility] - General Adult General Chief complaint: General Medical Stated complaint: left side pain radiating to her back Time Seen by Provider: 10/27/24 07:58 Source: patient and RN notes reviewed Mode of arrival: ambulatory Limitations: no limitations History of Present Illness ED Provider: Arielle Jauregui PA-C [facility] narrative: This is a 49-year-old female, with a past medical history of migraines, GERD, anemia, and hypertension, who presents emergency department with concerns of pain under her left breast x 2 days. Patient reports that she believes she twisted her torso wrong and suddenly developed this pain. She states that she also has been wearing underwire bras which has caused her pain to worsened. Pain does not worsen with palpation. Denies history of similar symptoms in the past. She denies any fevers, chills, cough, shortness of breath, palpitations, nausea, vomiting, or diarrhea. No abdominal pain. No urinary or bowel symptoms. She has been taking Tylenol for her symptoms which provided her with some relief. Denies history of similar symptoms in the past. No recent travel, surgery, or hospitalizations. No history of cancer or blood clots. No lower extremity swelling, no calf tenderness. No other complaints or concerns at this time. MD complaint: Chest pain Onset (ago): day(s) Severity: moderate Quality: aching Pain Consistency: intermittent Relieving factors: none Exacerbating factors: none Associated symptoms: denies other symptoms Treatments prior to arrival: none Related Data Home Medications ?Medication ?Instructions ?Recorded ?Confirmed clonazepam 0.5 mg tablet 0.5 mg PO BID PRN 03/25/20 02/13/24 sertraline 100 mg tablet 0 mg PO 03/25/20 02/13/24 Previous Rx's ?Medication ?Instructions ?Recorded ferrous sulfate 325 mg (65 mg 325 mg PO DAILY 90 days #90 tabs 08/19/24 iron) tablet amlodipine 2.5 mg tablet 2.5 mg PO DAILY 90 days #90 tabs 09/19/24 hydrochlorothiazide 25 mg tablet 25 mg PO DAILY 90 days #90 tabs 09/20/24 Allergies Allergy/AdvReac Type Severity Reaction Status Date / Time Penicillins Allergy Intermediate RASH Verified 10/27/24 06:33 Review of Systems Review of Systems: Yes all other systems are reviewed and are negative Constitutional: Constitutional: Reports as per [facility] Past Medical History Medical History Migraines ANNE (generalized anxiety disorder) Mild recurrent major depression Iron deficiency anemia Depression with anxiety Essential hypertension Surgical History History of carpal tunnel release History of tubal ligation Family History Family History Father Hypertension Mother Hypertension Maternal Grandmother Diabetes Paternal Grandfather Cancer Social History Social History Housing: Apartment Alcohol intake: current Alcohol intake frequency: holidays/special occasions only Alcohol type: beer and wine Patient Tobacco Use Status: Never used Tobacco Smoked in Last 30 Days: No e-Cigarette/Vaping Use: Never Used Second Hand Smoke Exposure: No Use of substances other than those prescribed or required for medical reasons: No Substance Use Type: Marijuana Advance Directives: No Advance Directives Information Provided: No Do you have a plan to hurt others: No Plan service: No Current occupational status: employed Current occupational exposures/hazards: No Cognitive needs: No Hearing needs: No Vision needs: Yes Physical Exam ED Vital Signs: Vital Signs - 24 hr 10/27/24 06:29 10/27/24 06:35 10/27/24 08:51 Temperature 98.0 F 98.0 F 97.9 F Pulse Rate 69 69 66 Respiratory Rate 16 16 15 Blood Pressure 168/77 H 168/77 H 161/89 H Pulse Oximetry 97 97 100 Oxygen Delivery Method Room Air Room Air Room Air 10/27/24 11:00 Temperature Pulse Rate 75 Respiratory Rate 18 Blood Pressure 164/94 H Pulse Oximetry 98 Oxygen Delivery Method Room Air BMI result Body Mass Index 32.6 Const General: cooperative, comfortable and no acute distress Orientation/consciousness: patient oriented x3 Limitations: no limitations HENMT Head: Yes normal to inspection, Yes normocephalic and Yes atraumatic Ears: hearing grossly normal bilaterally General nose exam: Normal external nose present Face and sinus: Yes normal facial exam Mouth: Normal oral and palatal mucosa present, oropharynx normal and moist mucous membranes Throat: Yes posterior oropharynx normal Eyes General: appearance normal, both eyes and all related structures Eyelids: Yes eyelids normal Conjunctivae: conjunctivae normal Sclerae: sclerae normal Pupils: Equal, round and reactive pupils present EOM: EOMs intact bilaterally Neck Neck: Yes normal visual inspection, Yes full ROM and Yes no lymphadenopathy Lymphatic: no lymphadenopathy noted Chest Other: Under left breast, patient points to where she is having the pain, this is under the left breast, along the sternal border, no palpable abnormalities, no overlying skin changes or warmth. Nontender. Chest palpation & inspection: normal inspection of the chest Resp Effort & Inspection: normal respiratory effort and able to speak in complete sentences Auscultation: clear to auscultation bilaterally, no crackles, no rales, no rhonchi and no wheezes Cardio Rate: regular rate Rhythm: regular rhythm Heart sounds: S1 normal heart sound present and S2 normal heart sound present GI Inspection: Yes normal to inspection Skin General skin exam: no rashes or lesions noted Trauma: no lacerations or abrasions Wounds: no wounds Neuro General: patient oriented x3 and moves all extremities Cranial nerves: Yes Equal, round and reactive pupils present Extrem General: Yes normal to inspection Right upper extremity: normal to inspection Left upper extremity: normal to inspection Right lower extremity: normal to inspection Left lower extremity: normal to inspection Medications Administered Discontinued Medications Generic Name Dose Route Start Last Admin Trade Name Freq PRN Reason Stop Dose Admin Acetaminophen 975 mg 10/27/24 11:09 10/27/24 11:35 Acetaminophen 325 Mg Tablet PO 10/27/24 11:10 975 mg ONCE ONE Administration Medical Decision Making Medical Decision Making [facility] Narrative: This is a 49-year-old female who presents emergency department with concerns of pain under left breast which started 2 days ago. She believes that she twisted wrong causing her to have this symptom. On arrival, blood pressure elevated 168/77, all other vital signs within normal limits. She is speaking full sentences under no acute distress. She is not tachycardic or hypoxic. Does report some pleuritic chest pain, she has had no recent travel, surgery, or hospitalizations. Chest pain is intermittent, does not currently have this pain now. Differential diagnoses include muscle strain, costochondritis, ACS-unlikely, PE-unlikely. Will obtain x-ray, EKG, labs. We will continue to closely monitor. Course: 942 - D-dimer negative, she does have a microcytic anemia with an H&H of 9.6/31.1, chemistry revealing no significant electrolyte derangement, troponin is 33. EKG with no acute ischemic changes, will repeat troponin in 2 hours. Patient has no current chest pain. We will continue to closely monitor. 1230 - repeat troponin flat, with negative delta. EKG normal sinus rhythm with no STEMI or any acute ischemic changes. Patient's symptoms occurred after turning a specific way 2 days ago and she also believes that her underwire bra has been causing some irritation in this area. She has no current chest pain. She is speaking in full sentences under no acute distress. She has no exertional chest pain, or shortness for breath. No palpitations. Clinical picture is not consistent with ACS, unclear why troponin was slightly elevated. I did discuss this with my attending physician, . Given that she is well-appearing, asymptomatic, symptoms are likely musculoskeletal in nature. Given strict return precautions. She understands and agrees with plan. Patient stable for discharge. Differential Diagnosis Differential Diagnoses: The differential diagnosis associated with the presentation includes See above Lab Data [facility] Lab Attestation statement: I reviewed the patient's lab results. See [facility] and course 10/27/24 08:41 10/27/24 08:41 Labs: Lab Results 10/27/24 10/27/24 Range/Units 08:41 10:54 WBC 7.7 (4.8-10.8) X10*3/uL RBC 4.16 L (4.20-5.50) X10*6/uL Hgb 9.6 L (12.0-16.0) g/dl Hct 31.1 L (37.0-47.0) % MCV 74.8 L (80.0-98.0) fL MCH 23.1 L (27.0-33.0) pg MCHC 30.9 L (31.0-35.0) g/dl RDW 18.7 H (11.0-16.0) % Plt Count 408 H (160-400) X10*3/uL MPV 9.0 L (9.4-12.3) fL Immature Gran % (Auto) 0.3 (0.0-0.4) % Neut % (Auto) 65.0 (45-73) % Lymph % (Auto) 25.4 (20-40) % Johnson % (Auto) 6.8 (2-11) % Eos % (Auto) 2.0 (0-4) % Baso % (Auto) 0.5 (0-2) % Lymph # (Auto) 2.0 (1.2-4.9) X10*3/uL Johnson # (Auto) 0.5 (0.1-1.2) X10*3/uL Eos # (Auto) 0.2 (0.0-0.4) X10*3/uL Baso # (Auto) 0.0 (0.0-0.2) X10*3/uL Abs Immat Gran (auto) 0.02 (0.00-0.03) X10*3/uL Absolute Neuts (auto) 5.0 (2.0-8.3) x10*3/uL Absolute Nucleated RBC 0.000 (0.0-0.012) X10*3/uL Nucleated RBC % (auto) 0.0 (0.0-0.2) /100WBC D-Dimer High Sensitivty < 150 NG/ML Sodium 137 (135-145) mmol/L Potassium 3.9 (3.3-5.1) mmol/L Chloride 107 (96-108) mmol/L Carbon Dioxide 24 (22-29) mmol/L Anion Gap 10 L (12-20) BUN 14 (9-16) mg/dL Creatinine 0.64 (0.5-1.4) mg/dL Estim Creat Clear Calc 110.0 Estimated GFR > 60 Random Glucose 90 (60-115) mg/dL Calcium 8.8 D (8.4-10.2) mg/dL Magnesium 2.2 (1.6-2.6) mg/dL Total Bilirubin 0.4 (0.0-1.0) mg/dL Direct Bilirubin 0.1 (0.0-0.5) mg/dL AST 18 (5-31) U/L ALT 14 (0-31) U/L Alkaline Phosphatase 54 (39-117) U/L Troponin I High Sens 33.0 H D 28.5 H (<3.5-17.0) ng/L Total Protein 7.5 (6.5-8.0) g/dL Albumin 4.3 (3.5-5.0) g/dL Lipase 14 (8-78) U/L Influenza Type A (PCR) NEGATIVE (Negative) Influenza Type B (PCR) NEGATIVE (Negative) RSV RNA Qual (PCR) NEGATIVE (Negative) SARS-CoV-2 RNA (RT-PCR) NEGATIVE (Negative) Independent Interpretation I performed an independent interpretation of an: EKG Interpretation: EKG #1: 643 - normal sinus rhythm at a ventricular rate of 68 beats per minute, MT interval 168, QRS 76, QT QTC 394/418, no STEMI. EKG #2: 1208 - EKG normal sinus rhythm at a ventricular rate of 61 beats per minute, MT interval 168, QT QTC 424/426, no STEMI. Radiology Impression Discussion of test interpretation with radiology: I have reviewed the radiologist's reading. Radiologist Impression: Findings: Top-normal heart size. No consolidations. No pleural effusion. No pneumothorax. No acute fracture. Soft tissue is unremarkable. Impression: No acute cardiopulmonary finding. This document has been electronically signed by: Jenny Ratliff MD on 10/27/2024 08:40:04 Dictated By: Jenny Ratliff MD Scores Heart Score History: -0- slightly suspicious ECG: -0- normal Age: -1- >45 - <65 Risk factory: -1- 1 or 2 risk factors Troponin: -1- >1 - <3x normal limit Score: 3 Risk: 1.7% Discharge Plan Discharge Clinical Impression: Chest pain Patient Disposition: Home, Self-Care Instructions: Chest Pain (ED), Chest Wall Pain (ED) Additional Instructions: You were seen in the emergency department due to pain underneath your left breast. Your workup today was reassuring. Your chest x-ray was normal. Your EKGs were normal. It is unclear what is causing you to have the symptoms however your symptoms are likely musculoskeletal in nature as they occurred after turning your torso. Please drink plenty of fluids get plenty of rest. You may take ibuprofen and or Tylenol as needed for pain and symptoms. Follow-up with your primary care physician as scheduled. If any new or worsening symptoms occur including but not limited to severe shortness of breath, chest pain, please seek emergent care. Prescriptions: No Action ferrous sulfate 325 mg (65 mg iron) tablet 325 mg PO DAILY 90 Days Qty: 90 1RF amlodipine 2.5 mg tablet 2.5 mg PO DAILY 90 Days Qty: 90 1RF hydrochlorothiazide 25 mg tablet 25 mg PO DAILY 90 Days Qty: 90 4RF sertraline 100 mg tablet 0 mg PO clonazepam 0.5 mg tablet 0.5 mg PO BID PRN Print Language: Portuguese
[2024-10-27 08:47] LABS: MANUAL DIFF FLAG NO
[2024-10-27 08:49] LABS: Hematocrit 31.1 % (37.0-47.0); Hemoglobin 9.6 g/dl (12.0-16.0); Imm Gran Abs Auto 0.02 X10*3/uL (0.00-0.03); Imm Gran Pct Auto 0.3 % (0.0-0.4); Lymphocytes Absolute Auto 2.0 X10*3/uL (1.2-4.9); Mean Corpuscular HGB Conc 30.9 g/dl (31.0-35.0); Mean Corpuscular Hemoglobin 23.1 pg (27.0-33.0); Mean Corpuscular Volume 74.8 fL (80.0-98.0); NRBC Abs Auto 0.000 X10*3/uL (0.0-0.012); NRBC Pct Auto 0.0 /100WBC (0.0-0.2); Platelet Count 408 X10*3/uL (160-400); Red Blood Count 4.16 X10*6/uL (4.20-5.50); White Blood Count 7.7 X10*3/uL (4.8-10.8)
[2024-10-27 08:51] VITALS: BP 161/89; PULSE 66; RESP 15; TEMP 36.6; O2SAT 100
[2024-10-27 09:00] LABS: D Dimer High Sensitivity < 150 NG/ML
[2024-10-27 09:08] LABS: Alanine Aminotransferase 14 U/L (0-31); Albumin Level 4.3 g/dL (3.5-5.0); Alkaline Phosphatase 54 U/L (39-117); Anion Gap 10 (12-20); Aspartate Amino Transferase 18 U/L (5-31); Blood Urea Nitrogen 14 mg/dL (9-16); Calcium 8.8 mg/dL (8.4-10.2); Carbon Dioxide 24 mmol/L (22-29); Chloride 107 mmol/L (96-108); Creatinine Clr Calc Pharmacy 110.0; Estimated Glomerular Filt Rate > 60; Lipase 14 U/L (8-78); Magnesium 2.2 mg/dL (1.6-2.6); Potassium 3.9 mmol/L (3.3-5.1); Sodium 137 mmol/L (135-145); Total Protein 7.5 g/dL (6.5-8.0)
[2024-10-27 09:16] LABS: Troponin-I High Sensitivity 33.0 ng/L (<3.5-17.0)
[2024-10-27 09:27] LABS: Resp Syncy Virus RNA Qual PCR NEGATIVE (Negative); SARS COV2 PCR INHOUSE NEGATIVE (Negative)
--- NOTE | 2024-10-27 09:31 | PC.NURSE ---
pt calm, cooperative. C/o upper posterior neck/back pain 10/30, minor pain under left breast, denies CP or SOB. RR even and unlabored. A+Ox4.
[2024-10-27 11:00] VITALS: BP 164/94; PULSE 75; RESP 18; O2SAT 98
[2024-10-27 11:19] LABS: Troponin-I High Sensitivity 28.5 ng/L (<3.5-17.0)
--- NOTE | 2024-10-27 11:49 | ECG_ITS ---
Test Reason : REPEAT Blood Pressure : */* mmHG Vent. Rate : 61 BPM Atrial Rate : 61 BPM P-R Int : 168 ms QRS Dur : 76 ms QT Int : 424 ms P-R-T Axes : 42 0 18 degrees QTcB Int : 426 ms Normal sinus rhythm Minimal voltage criteria for LVH, may be normal variant ( R in aVL ) Borderline ECG When compared with ECG of 27-Oct-2024 06:43, Questionable change in QRS axis Referred By: Arielle Jauregui Electronically Signed By: Venancio Elam
[2024-10-27 12:59] VITALS: BP 151/85; PULSE 65; RESP 18; TEMP -17.7; TEMP 0; O2SAT 97
[2024-10-27 13:03] VITALS: BP 151/85; PULSE 65; RESP 18; TEMP -17.7; TEMP 0; O2SAT 97
== END 2024-10-27 13:03 | disposition home or self-care (01) ==
PROVIDERS: Physician Assistant Medical; Emergency Provider Emergency Medicine; PCP Internal Medicine
DX: R07.89 Other chest pain (principal); M54.50 Low back pain, unspecified; N64.4 Mastodynia; Z03.818 Encounter for observation for suspected exposure to other biological agents ruled out; Z79.899 Other long term (current) drug therapy
CPT/HCPCS: 36415; 71045; 80048; 80076; 83690; 83735; 84484; 85025; 85379; 87637; 93005; 99283; 99284

== ENCOUNTER → 2024-10-27 06:43 | Outpatient (BNV) | payer OTHER, SELFPAY | PROVIDERS: Emergency Provider Emergency Medicine; PCP Internal Medicine; Visit Provider Internal Medicine Cardiovascular Disease | DX: R07.9 Chest pain, unspecified (principal); Z13.6 Encounter for screening for cardiovascular disorders | CPT/HCPCS: 93010 ==

== ENCOUNTER 2025-04-08 09:59 | Outpatient (REF) | payer OTHER, SELFPAY | END 2025-04-08 10:00 | LOC: HO.MAMMO 09:59 | PROVIDERS: PCP Internal Medicine; Visit Provider Internal Medicine | DX: Z12.31 Encounter for screening mammogram for malignant neoplasm of breast (principal) | CPT/HCPCS: 77063; 77067 ==

== ENCOUNTER → 2025-04-08 10:00 | Outpatient (BNV) | payer OTHER, SELFPAY | PROVIDERS: PCP Internal Medicine; Visit Provider Radiology Body Imaging | DX: Z12.31 Encounter for screening mammogram for malignant neoplasm of breast (principal) | CPT/HCPCS: 77063; 77067 ==